=== PATIENT | male | born 1960 | race Caucasian/White ===

== ENCOUNTER → 2016-03-17 | Outpatient (CLI) | payer MEDICARE, MEDICAID ==
--- NOTE | 2016-03-17 14:46 | CR ---
EXAMINATION: Right foot HISTORY: Pain COMPARISON: None TECHNIQUE: 2 views FINDINGS/IMPRESSION: There is no acute osseous abnormality, dislocation, or fracture identified. Bon e mineralization and joint spaces appear normal. No soft tissue swelling.
== END | disposition home or self-care (01) ==
LOC: MW.CHFP 09:42
PROVIDERS: ATTEND Emergency Medicine
DX: M79.671 Pain in right foot (principal); R42 Dizziness and giddiness
CPT/HCPCS: 73620; G0463

== ENCOUNTER 2016-04-30 11:13 | Emergency (ER) | payer MEDICARE, MEDICAID ==
[2016-04-30] MEDS ORDERED: Albuterol/Ipratropium 3.0-0.5 MG/3 ML Neb Soln NEB ONE (11:31)
[2016-04-30] MEDS ORDERED: Sodium Chloride 0.9% 1,000 ML IV ONE (11:37)
[2016-04-30] MEDS ORDERED: methylPREDNISolone Sodium Succinate 125 MG/2 ML SDV IVPUSH ONE (11:38)
--- NOTE | 2016-04-30 11:40 | EDM.PDOC ---
[id number]: COLD Time Seen by Provider: 04/30/16 11:25 Source of Information: Reports: Patient, Family History Limitations: Reports: No limitations - History of Present Illness INITIAL COMMENTS - FREE TEXT/NARRATIVE: HISTORY AND PHYSICAL: History of present illness: 36-year-old male with a history of COPD now complaining of some mild wheezing and cough for more than 5 days it no chest pain. No fevers chills sweats or shaking chills. His is able to function well is just has mild persistent cough and wheeze [other complaint] Review of systems: As per history of present illness and below otherwise all systems reviewed and negative. Past medical history: As per history of present illness and as reviewed below otherwise noncontributory. Surgical history: As per history of present illness and as reviewed below otherwise noncontributory. Social history: No reported history of drug or alcohol abuse. Family history: As per history of present illness and as reviewed below otherwise noncontributory. Physical exam: HEENT: Atraumatic, normocephalic, pupils reactive, negative for conjunctival pallor or scleral icterus, mucous membranes moist, throat clear, neck supple, nontender, trachea midline. Lungs: Clear to auscultation, mild wheezing bilateral, breath sounds equal bilaterally, chest nontender. Heart: S1S2, regular, negative for clicks, rubs, or JVD. Abdomen: Soft, nondistended, nontender. Negative for masses or hepatosplenomegaly. Negative for costovertebral tenderness. Pelvis: Stable nontender. Genitourinary: Deferred. Rectal: Deferred. Extremities: Atraumatic, negative for cords or calf pain. Neurovascular unremarkable. Neuro: Awake, alert, oriented. Cranial nerves II through XII unremarkable. Cerebellum unremarkable. Motor and sensory unremarkable throughout. Exam nonfocal. Diagnostics: [] Therapeutics: [] Impression: [] Plan: [Signs and symptoms consistent with mild COPD exacerbation in a well-appearing patient at baseline oxygenation status and in no acute distress after treatment. X-ray unremarkable. EKG benign with normal sinus tachycardia at 107 normal axis no STEMI. Discussed with patient will treat with Zithromax. He is aware to use Mucinex DM and a prescription for Tessalon Perles dispensed as well as a short course of prednisone which she is aware it is important to finish. no further workup or treatment indicated] patient agrees with outpatient followup strict return precautions Definitive disposition and diagnosis as appropriate pending reevaluation and review of above. - Related Data Allergies/ADRs: Allergies Allergy/AdvReac Type Severity Reaction Status Date / Time No Known Allergies Allergy Verified 12/01/15 11:32 Home Meds: Home Meds Diltiazem HCl [Diltiazem 24Hr Cd] 300 mg PO DAILY 05/29/14 [History] Metoprolol Succinate [Toprol XL] 50 mg PO DAILY 05/29/14 [History] Montelukast Sodium [Singulair] 10 mg PO DAILY 05/29/14 [History] Omeprazole 20 mg PO DAILY 05/29/14 [History] Oxybutynin 1 tab PO DAILY 05/29/14 [History] PARoxetine [Paxil] 20 mg PO DAILY 05/29/14 [History] Potassium Chloride 20 meq PO DAILY 05/29/14 [History] Divalproex Sodium [Divalproex Sodium ER] 500 mg PO BEDTIME 09/04/15 [History] Losartan Potassium 25 mg PO DAILY 09/04/15 [History] Fluticasone/Salmeterol [Advair 250-50] 1 puff INH DAILY PRN 09/06/15 [History] busPIRone HCl [Buspirone HCl] 15 mg PO BID 10/24/15 [History] guaiFENesin/Codeine Phosphate [Codeine-Guaifen 10-100 mg/5 ml] 5 ml PO Q4H PRN 11/15/15 [History] Digoxin [Digox] 1 tab PO DAILY 11/16/15 [History] Azithromycin [Zithromax] 250 mg PO DAILY #6 tablet 04/30/16 [Rx] Benzonatate 200 mg PO TID #30 capsule 04/30/16 [Rx] Dextromethorphan/guaiFENesin [Mucinex DM ER 600-30 MG] 1 tab PO BID PRN #20 tab.er 04/30/16 [Rx] Prednisone [IMW: predniSONE] 40 mg PO WITHBREAKFAST #4 tab 04/30/16 [Rx] Past Medical History Cardiovascular History: Reports: High cholesterol, Hypertension Respiratory History: Reports: Asthma Other Respiratory History: Chronic cough, 02 as needed (mother states he seldom uses 02 at present as cough and SOB is better). 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 Psychiatric History: Reports: Anxiety, Developmental delay Other Psychiatric History: high functioning Endocrine/Metabolic History: Reports: Diabetes, type II Hematologic History: Reports: None Immunologic History: Reports: None Oncologic (Cancer) History: Reports: None Dermatologic History: Reports: None - Infectious Disease History Infectious Disease History: Reports: Measles, Mumps - Past Surgical History HEENT Surgical History: Reports: Tonsillectomy GI Surgical History: Reports: Cholecystectomy Other Male Surgeries/Procedures: hx prostatitis Other Musculoskeletal Surgeries/Procedures:: Right Elbow surgery with metal and screws, c/o left shoulder pain and rt elbow pain Social & Family History - Family History Family Medical History: Noncontributory Cardiac: Reports: [place] Endocrine/Metabolic: Reports: Diabetes, type II - Tobacco Use Smoking Status *Q: Never Smoker Years of Tobacco use: 25 Packs/Tins Daily: 1 Second Hand Smoke Exposure: Yes - Caffeine Use Caffeine Use: Reports: None - Alcohol Use Days Per Week of Alcohol Use: 0 - Recreational Drug Use Recreational Drug Use: No Drug Use in Last 12 Months: No - Living Situation & Occupation Living situation: Reports: single, with family (mother and father) Occupation: disabled ED ROS GENERAL - Review of Systems Review Of Systems: See Below (Her history of present illness) ED EXAM, GENERAL - Physical Exam Exam: See Below (Per history of present illness) Course - Vital Signs Last Recorded V/S: Last Vital Signs Temp 36.6 C 04/30/16 14:36 Pulse 127 H 04/30/16 14:36 Resp 18 04/30/16 14:36 BP 125/80 04/30/16 14:36 Pulse Ox 94 L 04/30/16 14:36 - Orders/Labs/Meds Labs: Laboratory Tests 04/30/16 04/30/16 Range/Units 11:46 11:57 POC Glucose 166 H (60-110) mg/dL Troponin I < 0.10 (0.0-0.29) NG/ML Meds: Medications Discontinued Medications Generic Name Dose Route Start Last Admin Trade Name Freq PRN Reason Stop Dose Admin Albuterol/Ipratropium 3 ml 04/30/16 11:31 04/30/16 11:48 Duoneb 3.0-0.5 Mg/3 Ml NEB 04/30/16 11:32 3 ml ONETIME ONE Administration Sodium Chloride 1,000 mls @ 999 mls/hr 04/30/16 11:37 04/30/16 11:53 Normal Saline IV 04/30/16 12:37 999 mls/hr STAT ONE Administration Methylprednisolone Sodium Succinate 125 mg 04/30/16 11:38 04/30/16 11:59 Solu-Medrol IVPUSH 04/30/16 11:39 125 mg ONETIME ONE Administration Departure - Departure Time of Disposition: 14:35 Disposition: Home, Self-Care 01 Clinical Impression: Acute exacerbation of chronic obstructive airways disease Prescriptions: Azithromycin [Zithromax] 250 mg PO DAILY #6 tablet Benzonatate 200 mg PO TID #30 capsule Dextromethorphan/guaiFENesin [Mucinex DM ER 600-30 MG] 1 tab PO BID PRN #20 tab.er PRN Reason: Congestion Prednisone [IMW: predniSONE] 40 mg PO WITHBREAKFAST #4 tab Instructions: Chronic Obstructive Pulmonary Disease Exacerbation, [id number] Referrals: Pernell Rosas MD [Primary Care Provider] - Forms: ED Department Discharge
--- NOTE | 2016-04-30 12:25 | CR ---
EXAMINATION: Two-view chest (PA and Lateral views). HISTORY: Shortness of breath. FINDINGS: The trachea is midline. The cardiomediastinal silhouette is within normal limits. No pulmonary infil trates, effusions or pneumothorax. Osseous structures appear unremarkable. IMPRESSION: No acute cardiopulmonary process.
[2016-04-30 14:38] VITALS: BP 125/80
== END 2016-04-30 14:36 | disposition home or self-care (01) ==
LOC: MW.ED 11:13
DX: J44.1 Chronic obstructive pulmonary disease with (acute) exacerbation (principal); E78.00 Pure hypercholesterolemia, unspecified; I10 Essential (primary) hypertension; M19.90 Unspecified osteoarthritis, unspecified site; E11.9 Type 2 diabetes mellitus without complications; K21.9 Gastro-esophageal reflux disease without esophagitis; Z90.89 Acquired absence of other organs; Z98.890 Other specified postprocedural states
CPT/HCPCS: 36415; 71020; 82962; 84484; 93005; 94664; 96361; 96374; 99284; J2930; J7040

== ENCOUNTER → 2016-05-14 | Outpatient (CLI) | payer MEDICARE, MEDICAID | LOC: MW.CHFP 08:00 | PROVIDERS: ATTEND Emergency Medicine | DX: J45.40 Moderate persistent asthma, uncomplicated (principal) | CPT/HCPCS: G0463 ==

== ENCOUNTER → 2016-05-28 | Outpatient (CLI) | payer MEDICARE, MEDICAID ==
[~2016-05-28] MED LIST: Albuterol 0.083% 2.5 MG/3 ML Neb Soln NEB ONE
== END | disposition home or self-care (01) ==
LOC: MW.RT 13:24
PROVIDERS: ATTEND Emergency Medicine
DX: J45.40 Moderate persistent asthma, uncomplicated (principal)
CPT/HCPCS: 94060

== ENCOUNTER → 2016-05-29 | Outpatient (CLI) | payer MEDICARE, MEDICAID | LOC: MW.CHFP 08:00 | PROVIDERS: ATTEND Emergency Medicine | DX: J38.3 Other diseases of vocal cords (principal); R06.2 Wheezing | CPT/HCPCS: G0463 ==

== ENCOUNTER 2016-09-14 15:10 | Emergency (ER) | payer MEDICARE, MEDICAID ==
[2016-09-14 16:06] LABS: CHLORIDE,CL 98 mmol/L (98-110); SODIUM,NA 140 mmol/L (136-146)
[2016-09-14] MEDS ORDERED: Albuterol 0.083% 2.5 MG/3 ML Neb Soln NEB ONE (18:23)
[2016-09-14] MEDS ORDERED: methylPREDNISolone Sodium Succinate 125 MG/2 ML SDV IVPUSH ONE (18:50)
--- NOTE | 2016-09-14 18:55 | EDM.PDOC ---
ED HPI GENERAL MEDICAL PROBLEM - General Chief Complaint: Neuro Symptoms/Deficits Stated Complaint: HIGH BLOOD SUGAR Time Seen by Provider: 09/14/16 15:35 Source of Information: Reports: Patient History Limitations: Reports: No Limitations - History of Present Illness INITIAL COMMENTS - FREE TEXT/NARRATIVE: HISTORY AND PHYSICAL: History of present illness: [Patient comes to the ER complaining of increased wheezing. Has done 2 albuterol nebulizer treatments today, but continues to feel some wheezing. Questions if his blood sugars may be low. Is brought to the ER by his mother. Denies fever and chills. No chest pain or difficulty breathing. Appetite has been good. No abdominal pain, nausea or vomiting. No constipation. Has had some loose stools without blood. No cough or sputum production. No swelling or discomfort to his legs. No fatigue. Feels some dizziness when he is experiencing wheezing, but has otherwise not had any dizziness. ] Review of systems: As per history of present illness and below otherwise all systems reviewed and negative. Past medical history: As per history of present illness and as reviewed below otherwise noncontributory. Surgical history: As per history of present illness and as reviewed below otherwise noncontributory. Social history: No reported history of drug or alcohol abuse. Family history: As per history of present illness and as reviewed below otherwise noncontributory. Physical exam: General: Well developed, well nourished male in no acute distress. Is afebrile. HEENT: Atraumatic, normocephalic. mucous membranes moist. neck supple, nontender , no lympadenopathy. Lungs: Clear to auscultation, mild to moderate wheezing appreciated throughout lung jin. Chest is nontender to palpation. Heart: S1S2, regular rate and rhythm. Abdomen: Obese. Soft, nondistended, nontender. Negative for costovertebral tenderness. Pelvis: Stable nontender. Genitourinary: Deferred. Rectal: Deferred. Extremities: Atraumatic, negative for cords or calf pain. No cyanosis or edema to feet or lower legs. Ambulates that difficulty. Neurovascular unremarkable. Neuro: Awake, alert, oriented. Motor and sensory unremarkable throughout. Exam nonfocal. Psych: Appears to have a developmental delay on conversation. Diagnostics: [Chest x-ray, EKG, CBC, CMP, lactate, UA] Therapeutics: [Solu-Medrol 125 mg IV] Impression: [Asthma exacerbation Type 2 diabetes] Plan: [EKG shows normal sinus rhythm. No acute process seen on chest x-ray. No acute process seen on chest x-ray. Lab results are unremarkable. Blood sugar 131. lactate 1.3. White blood cell count 9.46. Prednisone 40 mg daily for 5 days. Follow-up with doctor later this week. Patient and mom are in agreement with plan. All questions are answered and concerns are addressed.] Definitive disposition and diagnosis as appropriate pending reevaluation and review of above. - Related Data Allergies Allergy/AdvReac Type Severity Reaction Status Date / Time No Known Allergies Allergy Verified 09/14/16 15:13 Home Meds: Home Meds Diltiazem HCl [Diltiazem 24Hr Cd] 300 mg PO DAILY 05/29/14 [History] Metoprolol Succinate [Toprol XL] 50 mg PO DAILY 05/29/14 [History] Montelukast Sodium [Singulair] 10 mg PO DAILY 05/29/14 [History] Omeprazole 20 mg PO DAILY 05/29/14 [History] Oxybutynin 1 tab PO DAILY 05/29/14 [History] PARoxetine [Paxil] 20 mg PO DAILY 05/29/14 [History] Potassium Chloride 20 meq PO DAILY 05/29/14 [History] Divalproex Sodium [Divalproex Sodium ER] 500 mg PO BEDTIME 09/04/15 [History] Losartan Potassium 25 mg PO DAILY 09/04/15 [History] Fluticasone/Salmeterol [Advair 250-50] 1 puff INH DAILY PRN 09/06/15 [History] busPIRone HCl [Buspirone HCl] 15 mg PO BID 10/24/15 [History] guaiFENesin/Codeine Phosphate [Codeine-Guaifen 10-100 mg/5 ml] 5 ml PO Q4H PRN 11/15/15 [History] Digoxin [Digox] 1 tab PO DAILY 11/16/15 [History] Azithromycin [Zithromax] 250 mg PO DAILY #6 tablet 04/30/16 [Rx] Benzonatate 200 mg PO TID #30 capsule 04/30/16 [Rx] Dextromethorphan/guaiFENesin [Mucinex DM ER 600-30 MG] 1 tab PO BID PRN #20 tab.er 04/30/16 [Rx] Prednisone [IMW: predniSONE] 40 mg PO WITHBREAKFAST #4 tab 04/30/16 [Rx] Prednisone [IJD: predniSONE] 40 mg PO WITHBREAKFAST #10 tab 09/14/16 [Rx] Past Medical History Cardiovascular History: Reports: High Cholesterol, Hypertension Respiratory History: Reports: Asthma Other Respiratory History: Chronic cough, 02 as needed (mother states he seldom uses 02 at present as cough and SOB is better). 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 Psychiatric History: Reports: Anxiety, Developmental Delay Other Psychiatric History: high functioning Endocrine/Metabolic History: Reports: Diabetes, Type II Hematologic History: Reports: None Immunologic History: Reports: None Oncologic (Cancer) History: Reports: None Dermatologic History: Reports: None - Infectious Disease History Infectious Disease History: Reports: Measles, Mumps - Past Surgical History HEENT Surgical History: Reports: Tonsillectomy Male Surgical History: Reports: Other (See Below) Other Musculoskeletal Surgeries/Procedures:: Right Elbow surgery with metal and screws, c/o left shoulder pain and rt elbow pain Social & Family History - Family History Family Medical History: Noncontributory Cardiac: Reports: [place] Endocrine/Metabolic: Reports: Diabetes, type II - Tobacco Use Smoking Status *Q: Never Smoker Years of Tobacco use: 25 Packs/Tins Daily: 1 Second Hand Smoke Exposure: Yes - Caffeine Use Caffeine Use: Reports: None - Alcohol Use Days Per Week of Alcohol Use: 0 - Recreational Drug Use Recreational Drug Use: No Drug Use in Last 12 Months: No - Living Situation & Occupation Living situation: Reports: Single, with Family Occupation: Disabled ED ROS GENERAL - Review of Systems Review Of Systems: ROS reveals no pertinent complaints other than HPI. ED EXAM, GENERAL - Physical Exam Exam: See Below Course - Vital Signs Last Recorded V/S: Last Vital Signs Temp 97.2 F 09/14/16 15:13 Pulse 90 09/14/16 19:28 Resp 18 09/14/16 19:28 BP 139/72 09/14/16 19:28 Pulse Ox 98 09/14/16 19:28 - Orders/Labs/Meds Orders: Active Orders 24 hr Category Date Time Status EKG Documentation Completion [RC] STAT Care 09/14/16 15:48 Active RT Aerosol Therapy [RC] ASDIRECTED Care 09/14/16 18:23 Active Chest 2V [CR] Stat Exams 09/14/16 15:48 Taken Labs: Laboratory Tests 09/14/16 09/14/16 09/14/16 Range/Units 15:23 15:23 15:58 WBC 9.46 (4.0-11.0) K/uL RBC 4.77 (4.50-5.90) M/uL Hgb 12.4 L (13.0-17.0) g/dL Hct 40.1 (38.0-50.0) % MCV 84.1 (80.0-98.0) fL MCH 26.0 L (27.0-32.0) pg MCHC 30.9 L (31.0-37.0) g/dL RDW Std Deviation 41.8 (28.0-62.0) fl RDW Coeff of Myles 14 (11.0-15.0) % Plt Count 309 (150-400) K/uL MPV 9.20 (7.40-12.00) fL Neut % (Auto) 56.9 (48.0-80.0) % Lymph % (Auto) 29.7 (16.0-40.0) % [place] % (Auto) 11.5 (0.0-15.0) % Eos % (Auto) 1.8 (0.0-7.0) % Baso % (Auto) 0.1 (0.0-1.5) % Neut # (Auto) 5.4 (1.4-5.7) K/uL Lymph # (Auto) 2.8 H (0.6-2.4) K/uL [place] # (Auto) 1.1 H (0.0-0.8) K/uL Eos # (Auto) 0.2 (0.0-0.7) K/uL Baso # (Auto) 0.0 (0.0-0.1) K/uL Nucleated RBC % 0.0 /100WBC Nucleated RBCs # 0 K/uL Lactate 1.3 (0.20-2.00) mmol/L Sodium 140 (136-146) mmol/L Potassium 4.1 (3.5-5.1) mmol/L Chloride 98 (98-110) mmol/L Carbon Dioxide 32 H (21-31) mmol/L BUN 12 (6.0-23.0) mg/dL Creatinine 0.8 (0.6-1.5) mg/dL Est Cr Clr Drug Dosing 108.51 mL/min Estimated GFR (MDRD) > 60.0 ml/min Glucose 131 H (60-110) mg/dL Calcium 9.1 (8.8-10.8) mg/dL Total Bilirubin 0.4 (0.1-1.5) mg/dL AST 25 (5-40) IU/L ALT 27 (8-54) IU/L Alkaline Phosphatase 110 (40-150) Total Protein 7.4 (6.0-8.0) g/dL Albumin 3.6 (3.5-5.0) g/dL Globulin 3.8 H (2.0-3.5) g/dL Albumin/Globulin Ratio 1.0 L (1.3-2.8) Urine Color Urine Appearance Urine pH (5.0-8.0) Ur Specific [place] (1.001-1.035) Urine Protein (NEGATIVE) mg/dL Urine Glucose (UA) (NEGATIVE) mg/dL Urine Ketones (NEGATIVE) mg/dL Urine Occult Blood (NEGATIVE) Urine Nitrite (NEGATIVE) Urine Bilirubin (NEGATIVE) Urine Urobilinogen (<2.0) EU/dL Ur Leukocyte Esterase (NEGATIVE) Urine RBC (0-2/HPF) Urine WBC (0-5/HPF) Ur Epithelial Cells (NONE-FEW) Urine Bacteria (NEGATIVE) 09/14/16 Range/Units 17:40 WBC (4.0-11.0) K/uL RBC (4.50-5.90) M/uL Hgb (13.0-17.0) g/dL Hct (38.0-50.0) % MCV (80.0-98.0) fL MCH (27.0-32.0) pg MCHC (31.0-37.0) g/dL RDW Std Deviation (28.0-62.0) fl RDW Coeff of Myles (11.0-15.0) % Plt Count (150-400) K/uL MPV (7.40-12.00) fL Neut % (Auto) (48.0-80.0) % Lymph % (Auto) (16.0-40.0) % [place] % (Auto) (0.0-15.0) % Eos % (Auto) (0.0-7.0) % Baso % (Auto) (0.0-1.5) % Neut # (Auto) (1.4-5.7) K/uL Lymph # (Auto) (0.6-2.4) K/uL [place] # (Auto) (0.0-0.8) K/uL Eos # (Auto) (0.0-0.7) K/uL Baso # (Auto) (0.0-0.1) K/uL Nucleated RBC % /100WBC Nucleated RBCs # K/uL Lactate (0.20-2.00) mmol/L Sodium (136-146) mmol/L Potassium (3.5-5.1) mmol/L Chloride (98-110) mmol/L Carbon Dioxide (21-31) mmol/L BUN (6.0-23.0) mg/dL Creatinine (0.6-1.5) mg/dL Est Cr Clr Drug Dosing mL/min Estimated GFR (MDRD) ml/min Glucose (60-110) mg/dL Calcium (8.8-10.8) mg/dL Total Bilirubin (0.1-1.5) mg/dL AST (5-40) IU/L ALT (8-54) IU/L Alkaline Phosphatase (40-150) Total Protein (6.0-8.0) g/dL Albumin (3.5-5.0) g/dL Globulin (2.0-3.5) g/dL Albumin/Globulin Ratio (1.3-2.8) Urine Color YELLOW Urine Appearance CLEAR Urine pH 6.0 (5.0-8.0) Ur Specific [place] 1.010 (1.001-1.035) Urine Protein NEGATIVE (NEGATIVE) mg/dL Urine Glucose (UA) NEGATIVE (NEGATIVE) mg/dL Urine Ketones NEGATIVE (NEGATIVE) mg/dL Urine Occult Blood NEGATIVE (NEGATIVE) Urine Nitrite NEGATIVE (NEGATIVE) Urine Bilirubin NEGATIVE (NEGATIVE) Urine Urobilinogen 0.2 (<2.0) EU/dL Ur Leukocyte Esterase NEGATIVE (NEGATIVE) Urine RBC NONE SEEN (0-2/HPF) Urine WBC 0-1 (0-5/HPF) Ur Epithelial Cells RARE (NONE-FEW) Urine Bacteria RARE (NEGATIVE) Meds: Medications Discontinued Medications Generic Name Dose Route Start Last Admin Trade Name Sheryl PRN Reason Stop Dose Admin Albuterol 2.5 mg 09/14/16 18:23 09/14/16 18:37 Proventil Neb Soln NEB 09/14/16 18:24 2.5 mg ONETIME ONE Administration Methylprednisolone Sodium Succinate 125 mg 09/14/16 18:50 09/14/16 18:59 Solu-Medrol IVPUSH 09/14/16 18:51 125 mg ONETIME ONE Administration Departure - Departure Time of Disposition: 18:55 Disposition: Home, Self-Care 01 Condition: Good Clinical Impression: Asthma exacerbation - Discharge Information Prescriptions: Prednisone [IJD: predniSONE] 40 mg PO WITHBREAKFAST #10 tab Instructions: Asthma, Adult, [id number] Referrals: Pernell Rosas MD [Primary Care Provider] - Forms: ED Department Discharge Additional Instructions: The following information is given to patients seen in the emergency department who are being discharged to home. This information is to outline your options for follow-up care. We provide all patients seen in our emergency department with a follow-up referral. The need for follow-up, as well as the timing and circumstances, are variable depending upon the specifics of your emergency department visit. If you don't have a primary care physician on staff, we will provide you with a referral. We always advise you to contact your personal physician following an emergency department visit to inform them of the circumstance of the visit and for follow-up with them and/or the need for any referrals to a consulting specialist. The emergency department will also refer you to a specialist when appropriate. This referral assures that you have the opportunity for follow-up care with a specialist. All of these measure are taken in an effort to provide you with optimal care, which includes your follow-up. Under all circumstances we always encourage you to contact your private physician who remains a resource for coordinating your care. When calling for follow-up care, please make the office aware that this follow-up is from your recent emergency room visit. If for any reason you are refused follow-up, please contact the [facility] emergency department at and asked to speak to the emergency department charge nurse. [facility] [address] [place] [id number] All up with your primary care provider at the clinic listed above in 48-72 hours. Take medications as prescribed. Be aware that Prednisone will increase your blood sugars. Return to ER as needed as discussed. - My Orders Last 24 Hours: My Active Orders 09/14/16 15:48 EKG Documentation Completion [RC] STAT Chest 2V [CR] Stat 09/14/16 18:23 RT Aerosol Therapy [RC] ASDIRECTED - Assessment/Plan Last 24 Hours: My Active Orders 09/14/16 15:48 EKG Documentation Completion [RC] STAT Chest 2V [CR] Stat 09/14/16 18:23 RT Aerosol Therapy [RC] ASDIRECTED
[2016-09-14 21:37] VITALS: BP 139/72
--- NOTE | 2016-09-15 09:28 | CR ---
EXAM DATE: 09/14/16 PATIENT'S AGE: 56 Patient: ABIGAIL TOLENTINO Facility: [place], [place] Site . Site : 1960 Study: XRay Chest [id number] 5:21:46 PM Ordering Physician: Doctor Orourke Final Report: INDICATION: pain/sob TECHNIQUE: Chest 2 views COMPARISON: None FINDINGS: Cardiovascular and mediastinum: Heart size and vasculature are normal in caliber and appearance. Mediastinum is within normal limits. Lungs and pleural spaces: No focal consolidation. No sign of pleural effusion. No pneumothorax. Bones and soft tissues: No significant findings. IMPRESSION: No acute cardiopulmonary disease. Dictated by Gomez Carbone MD @ 09/14/2016 6:02:21 PM Dictated by: Gomez Carbone MD @ 09/14/2016 18:02:28 (Electronic Signature) Report Signed by Proxy. MTDDawna
== END 2016-09-14 19:28 | disposition home or self-care (01) ==
LOC: MW.ED 15:10
DX: J45.901 Unspecified asthma with (acute) exacerbation (principal); E11.9 Type 2 diabetes mellitus without complications; E78.00 Pure hypercholesterolemia, unspecified; I10 Essential (primary) hypertension; K21.9 Gastro-esophageal reflux disease without esophagitis; Z79.899 Other long term (current) drug therapy; Z98.890 Other specified postprocedural states
CPT/HCPCS: 36415; 71020; 80053; 81001; 83605; 85025; 93005; 94640; 96374; 99284; J2930

== ENCOUNTER 2016-10-26 04:59 | Inpatient (IN) | payer MEDICARE, MEDICAID ==
--- NOTE | 2016-10-26 05:10 | EDM.PDOC ---
ED HPI GENERAL MEDICAL PROBLEM - General Chief Complaint: Respiratory Problem Stated Complaint: FALL Time Seen by Provider: 10/26/16 05:08 - History of Present Illness INITIAL COMMENTS - FREE TEXT/NARRATIVE: HISTORY AND PHYSICAL: History of present illness: Patient 56-year-old male history of COPD and diabetes who presents with a concern of dizziness and fall he states he had a fall with dizziness prior to arrival which was unable to get up. Did injure his knee in this fall he denies chest pain palpitations nausea vomiting or other complaints. He denies any head or neck pain or trauma no reported fever chills or other complaints Review of systems: As per history of present illness and below otherwise all systems reviewed and negative. Past medical history: As per history of present illness and as reviewed below otherwise noncontributory. Surgical history: As per history of present illness and as reviewed below otherwise noncontributory. Social history: No reported history of drug or alcohol abuse. Family history: As per history of present illness and as reviewed below otherwise noncontributory. Physical exam: HEENT: Atraumatic, normocephalic, pupils reactive, negative for conjunctival pallor or scleral icterus, mucous membranes dry, throat clear, neck supple, nontender, trachea midline. Lungs: Slightly coarse, breath sounds equal bilaterally, chest nontender. Heart: S1S2, regular, negative for clicks, rubs, or JVD. Abdomen: Soft, nondistended, nontender. Negative for masses or hepatosplenomegaly. Negative for costovertebral tenderness. Pelvis: Stable nontender. Genitourinary: Deferred. Rectal: Deferred. Extremities: Abrasion noted left knee no point tenderness crepitation joint grossly stable no effusion, negative for cords or calf pain. Neurovascular unremarkable. Neuro: Awake, alert, oriented. Cranial nerves II through XII unremarkable. Cerebellum unremarkable. Motor and sensory unremarkable throughout. Exam nonfocal. Diagnostics: CBC CMP PT/INR troponin chest x-ray EKG CT brain x-ray left knee Therapeutics: Normal saline 500 cc bolus surveillance monitor oxygen Impression: #1 dizziness #2 observation status post fall #3 history diabetes #4 history of COPD #5 left knee injury Definitive disposition and diagnosis as appropriate pending reevaluation and review of above. - Related Data Allergies Allergy/AdvReac Type Severity Reaction Status Date / Time meat Allergy Shortness Uncoded 10/26/16 05:09 of Breath Home Meds: Home Meds Diltiazem HCl [Diltiazem 24Hr Cd] 300 mg PO DAILY 05/29/14 [History] Metoprolol Succinate [Toprol XL] 50 mg PO DAILY 05/29/14 [History] Montelukast Sodium [Singulair] 10 mg PO DAILY 05/29/14 [History] Omeprazole 20 mg PO DAILY 05/29/14 [History] Oxybutynin 1 tab PO DAILY 05/29/14 [History] PARoxetine [Paxil] 20 mg PO DAILY 05/29/14 [History] Potassium Chloride 20 meq PO DAILY 05/29/14 [History] Divalproex Sodium [Divalproex Sodium ER] 500 mg PO BEDTIME 09/04/15 [History] Losartan Potassium 25 mg PO DAILY 09/04/15 [History] Fluticasone/Salmeterol [Advair 250-50] 1 puff INH DAILY PRN 09/06/15 [History] busPIRone HCl [Buspirone HCl] 15 mg PO BID 10/24/15 [History] guaiFENesin/Codeine Phosphate [Codeine-Guaifen 10-100 mg/5 ml] 5 ml PO Q4H PRN 11/15/15 [History] Digoxin [Digox] 1 tab PO DAILY 11/16/15 [History] Azithromycin [Zithromax] 250 mg PO DAILY #6 tablet 04/30/16 [Rx] Benzonatate 200 mg PO TID #30 capsule 04/30/16 [Rx] Dextromethorphan/guaiFENesin [Mucinex DM ER 600-30 MG] 1 tab PO BID PRN #20 tab.er 04/30/16 [Rx] Prednisone [IMW: predniSONE] 40 mg PO WITHBREAKFAST #4 tab 04/30/16 [Rx] Prednisone [IJD: predniSONE] 40 mg PO WITHBREAKFAST #10 tab 09/14/16 [Rx] Benztropine [Cogentin] 1 mg PO DAILY 10/26/16 [History] Furosemide [Furosemide] 20 mg PO DAILY 10/26/16 [History] QUEtiapine [SEROquel] 300 mg PO DAILY 10/26/16 [History] atorvaSTATin [Lipitor] 10 mg PO DAILY 10/26/16 [History] hydrOXYzine HCl [Atarax] 25 mg PO ASDIRECTED 10/26/16 [History] metFORMIN HCl [Metformin HCl] 1 tab PO DAILY 10/26/16 [History] traZODone 50 mg PO DAILY 10/26/16 [History] Past Medical History Cardiovascular History: Reports: High Cholesterol, Hypertension Respiratory History: Reports: Asthma Other Respiratory History: Chronic cough, 02 as needed (mother states he seldom uses 02 at present as cough and SOB is better). 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 Psychiatric History: Reports: Anxiety, Developmental Delay Other Psychiatric History: high functioning Endocrine/Metabolic History: Reports: Diabetes, Type II Hematologic History: Reports: None Immunologic History: Reports: None Oncologic (Cancer) History: Reports: None Dermatologic History: Reports: None - Infectious Disease History Infectious Disease History: Reports: Measles, Mumps - Past Surgical History HEENT Surgical History: Reports: Tonsillectomy Male Surgical History: Reports: Other (See Below) Other Musculoskeletal Surgeries/Procedures:: Right Elbow surgery with metal and screws, c/o left shoulder pain and rt elbow pain Social & Family History - Family History Family Medical History: Noncontributory Cardiac: Reports: [place] Endocrine/Metabolic: Reports: Diabetes, type II - Tobacco Use Smoking Status *Q: Never Smoker Years of Tobacco use: 25 Packs/Tins Daily: 1 Second Hand Smoke Exposure: Yes - Caffeine Use Caffeine Use: Reports: None - Alcohol Use Days Per Week of Alcohol Use: 0 - Recreational Drug Use Recreational Drug Use: No Drug Use in Last 12 Months: No - Living Situation & Occupation Living situation: Reports: Single, with Family Occupation: Disabled ED ROS GENERAL - Review of Systems Review Of Systems: ROS reveals no pertinent complaints other than HPI. ED EXAM, GENERAL - Physical Exam Exam: See Below (See dictation) Course - Vital Signs Last Recorded V/S: Last Vital Signs Temp 36.1 C 10/26/16 05:00 Pulse 87 10/26/16 05:00 Resp 20 10/26/16 05:00 BP 141/77 H 10/26/16 05:00 Pulse Ox 88 L 10/26/16 05:00 - Orders/Labs/Meds Orders: Active Orders 24 hr Category Date Time Status EKG Documentation Completion [RC] STAT Care 10/26/16 05:06 Active Chest 1V Frontal [CR] Stat Exams 10/26/16 05:08 Taken Head wo Cont [CT] Stat Exams 10/26/16 05:07 Taken Knee 3V Lt [CR] Stat Exams 10/26/16 05:08 Taken Sodium Chloride 0.9% [Normal Saline] 500 ml Med 10/26/16 05:15 Active IV .BOLUS Medication Orders Sodium Chloride (Normal Saline) 500 mls @ 999 mls/hr IV .BOLUS LACIE Last Admin: 10/26/16 05:11 Dose: 999 mls/hr Labs: Laboratory Tests 10/26/16 10/26/16 10/26/16 Range/Units 05:00 05:00 05:00 WBC 8.11 (4.0-11.0) K/uL RBC 5.13 (4.50-5.90) M/uL Hgb 13.8 (13.0-17.0) g/dL Hct 44.0 (38.0-50.0) % MCV 85.8 (80.0-98.0) fL MCH 26.9 L (27.0-32.0) pg MCHC 31.4 (31.0-37.0) g/dL RDW Std Deviation 43.0 (28.0-62.0) fl RDW Coeff of Myles 14 (11.0-15.0) % Plt Count 234 (150-400) K/uL MPV 9.10 (7.40-12.00) fL Add Manual Diff YES Neutrophils % (Manual) 45 L (48.0-80.0) % Band Neutrophils % 1 % Lymphocytes % (Manual) 41 H (16.0-40.0) % Monocytes % (Manual) 10 (0.0-15.0) % Eosinophils % (Manual) 2 (0.0-7.0) % Basophils % (Manual) 1 (0.0-1.5) % Nucleated RBC % 0.0 /100WBC Absolute Seg Neuts 3.6 Band Neutrophils # 0.1 Lymphocytes # (Manual) 3.3 Monocytes # (Manual) 0.8 Eosinophils # (Manual) 0.2 Basophils # (Manual) 0 Nucleated RBCs # 0 K/uL INR 1.08 (0.86-1.11) Sodium 143 (136-146) mmol/L Potassium 4.3 (3.5-5.1) mmol/L Chloride 97 L (98-110) mmol/L Carbon Dioxide 35 H (21-31) mmol/L BUN 15 (6.0-23.0) mg/dL Creatinine 1.0 (0.6-1.5) mg/dL Est Cr Clr Drug Dosing 84.15 mL/min Estimated GFR (MDRD) > 60.0 ml/min Glucose 135 H (60-110) mg/dL Calcium 9.6 (8.8-10.8) mg/dL Total Bilirubin 0.5 (0.1-1.5) mg/dL AST 19 (5-40) IU/L ALT 12 (8-54) IU/L Alkaline Phosphatase 91 (40-150) Troponin I (0.0-0.29) NG/ML Total Protein 7.4 (6.0-8.0) g/dL Albumin 3.7 (3.5-5.0) g/dL Globulin 3.7 H (2.0-3.5) g/dL Albumin/Globulin Ratio 1.0 L (1.3-2.8) 10/26/16 Range/Units 05:00 WBC (4.0-11.0) K/uL RBC (4.50-5.90) M/uL Hgb (13.0-17.0) g/dL Hct (38.0-50.0) % MCV (80.0-98.0) fL MCH (27.0-32.0) pg MCHC (31.0-37.0) g/dL RDW Std Deviation (28.0-62.0) fl RDW Coeff of Myles (11.0-15.0) % Plt Count (150-400) K/uL MPV (7.40-12.00) fL Add Manual Diff Neutrophils % (Manual) (48.0-80.0) % Band Neutrophils % % Lymphocytes % (Manual) (16.0-40.0) % Monocytes % (Manual) (0.0-15.0) % Eosinophils % (Manual) (0.0-7.0) % Basophils % (Manual) (0.0-1.5) % Nucleated RBC % /100WBC Absolute Seg Neuts Band Neutrophils # Lymphocytes # (Manual) Monocytes # (Manual) Eosinophils # (Manual) Basophils # (Manual) Nucleated RBCs # K/uL INR (0.86-1.11) Sodium (136-146) mmol/L Potassium (3.5-5.1) mmol/L Chloride (98-110) mmol/L Carbon Dioxide (21-31) mmol/L BUN (6.0-23.0) mg/dL Creatinine (0.6-1.5) mg/dL Est Cr Clr Drug Dosing mL/min Estimated GFR (MDRD) ml/min Glucose (60-110) mg/dL Calcium (8.8-10.8) mg/dL Total Bilirubin (0.1-1.5) mg/dL AST (5-40) IU/L ALT (8-54) IU/L Alkaline Phosphatase (40-150) Troponin I < 0.10 (0.0-0.29) NG/ML Total Protein (6.0-8.0) g/dL Albumin (3.5-5.0) g/dL Globulin (2.0-3.5) g/dL Albumin/Globulin Ratio (1.3-2.8) Meds: Medications Generic Name Dose Route Start Last Admin Trade Name Freq PRN Reason Stop Dose Admin Sodium Chloride 500 mls @ 999 mls/hr 10/26/16 05:15 10/26/16 05:11 Normal Saline IV 999 mls/hr .BOLUS LACIE Administration Departure - Departure Time of Disposition: 06:28 Disposition: Refer to Observation Condition: Good Clinical Impression: Dizziness, Fall, Diabetes - Discharge Information Referrals: PCP,None [Primary Care Provider] - Forms: ED Department Discharge - My Orders Last 24 Hours: My Active Orders 10/26/16 05:06 EKG Documentation Completion [RC] STAT 10/26/16 05:07 Head wo Cont [CT] Stat 10/26/16 05:08 Chest 1V Frontal [CR] Stat Knee 3V Lt [CR] Stat 10/26/16 05:15 Sodium Chloride 0.9% [Normal Saline] 500 ml IV .BOLUS - Assessment/Plan Last 24 Hours: My Active Orders 10/26/16 05:06 EKG Documentation Completion [RC] STAT 10/26/16 05:07 Head wo Cont [CT] Stat 10/26/16 05:08 Chest 1V Frontal [CR] Stat Knee 3V Lt [CR] Stat 10/26/16 05:15 Sodium Chloride 0.9% [Normal Saline] 500 ml IV .BOLUS
[2016-10-26] MEDS ORDERED: Sodium Chloride 0.9% 500 ML IV SCH (05:15)
[2016-10-26 05:31] LABS: CHLORIDE,CL 97 mmol/L (98-110); SODIUM,NA 143 mmol/L (136-146)
[2016-10-26] MEDS ORDERED: Morphine 2 MG/ML Syringe IVPUSH PRN (08:46)
[2016-10-26] MEDS ORDERED: Ondansetron 4 MG Tab.DIS PO PRN (08:46)
[2016-10-26] MEDS ORDERED: Docusate Sodium 100 MG Cap PO PRN (08:46)
--- NOTE | 2016-10-26 08:52 | CR ---
EXAMINATION: Right foot HISTORY: Pain COMPARISON: 03/17/2016 TECHNIQUE: 2 views FINDINGS/IMPRESSION: There is no acute osseous abnormality, dislocation, or fracture. There is a smal l plantar and a moderate Achilles calcaneal spur. Bone mineralization appears normal. No focal soft t issue swelling.
[2016-10-26] MEDS ORDERED: DILTIAZEM 300 MG PO SCH (09:00)
[2016-10-26] MEDS ORDERED: PARoxetine 20 MG Tab PO SCH (09:00)
[2016-10-26] MEDS ORDERED: QUEtiapine 100 MG Tab PO SCH (09:00)
[2016-10-26] MEDS ORDERED: Benztropine 1 MG Tab PO SCH (09:00)
[2016-10-26] MEDS: Sodium Chloride 0.9% 1,000 ML IV SCH (10:01)
[2016-10-26] MEDS: Enoxaparin 40 MG/0.4 ML Syringe SUBCUT SCH (10:04)
[2016-10-26] MEDS: Acetaminophen 325 MG Tab PO PRN ×2 (10:08→15:48)
--- NOTE | 2016-10-26 10:17 | PCM.HP ---
H&P History of Present Illness - General Date of Service: 10/26/16 Admit Problem/Dx: Admission Diagnosis/Problem Admission Diagnosis/Problem Syncope and collapse Source of Information: Patient, Family History Limitations: Reports: No Limitations - History of Present Illness Initial Comments - Free Text/Narative: The patient is a 56-year-old gentleman who is somewhat developmentally delayed and he lives with his mother. Patient has a history of COPD and diabetes. The patient and the patient's mother says that he has had a significant history of dizziness in which she will pass out and he has been unable to get up. The patient has fallen at least 4 times in the past several days. This is resulted bilateral knee injuries with abrasions as well as pain in his right foot. The patient has been taking medications for his depression, developmental delay, insomnia and these have been recently adjusted. The patient's primary concern at this time is pain in his right foot. There was also concern with regards to seizure disorder as he is mother has noticed him shaking and tremulous when he falls. Patient also does not have any recollection of his fall. Patient has been in his usual state of health. He has had no specific aggravating or relieving factors. Onset of Symptoms: Reports: Gradual Duration of Symptoms: Reports: Day(s): Location: Reports: Generalized Severity: Moderate Improves with: Reports: None Worsens with: Reports: None Associated Symptoms: Reports: Confusion, Other (Trauma) left knee Pain Score (Numeric/FACES): 9 - Related Data Allergies/Adverse Reactions: Allergies Allergy/AdvReac Type Severity Reaction Status Date / Time meat Allergy Shortness Uncoded 10/26/16 05:09 of Breath Home Medications: Home Meds Diltiazem HCl [Diltiazem 24Hr Cd] 300 mg PO DAILY 05/29/14 [History] Metoprolol Succinate [Toprol XL] 50 mg PO DAILY 05/29/14 [History] Montelukast Sodium [Singulair] 10 mg PO DAILY 05/29/14 [History] Omeprazole 20 mg PO DAILY 05/29/14 [History] Oxybutynin 5 mg PO DAILY 05/29/14 [History] PARoxetine [Paxil] 40 mg PO DAILY 05/29/14 [History] Potassium Chloride 20 meq PO DAILY 05/29/14 [History] Divalproex Sodium [Divalproex Sodium ER] 1,000 mg PO BEDTIME 09/04/15 [History] Losartan Potassium 25 mg PO DAILY 09/04/15 [History] Digoxin [Digox] 250 mcg PO DAILY 11/16/15 [History] Albuterol [Proventil HFA] 1 - 2 inh IH Q4H PRN 10/26/16 [History] Albuterol/Ipratropium [DuoNeb 3.0-0.5 MG/3 ML] 3 ml IH QID PRN 10/26/16 [History ] Benztropine [Cogentin] 1 mg PO BID 10/26/16 [History] Cholestyramine (With Sugar) [Cholestyramine Powder] 9 gm PO BID 10/26/16 [ History] Furosemide [Furosemide] 20 mg PO Q2D@0800 10/26/16 [History] QUEtiapine [SEROquel] 150 mg PO BID@1800,2100 10/26/16 [History] atorvaSTATin [Lipitor] 10 mg PO DAILY 10/26/16 [History] hydrOXYzine Pamoate [Hydroxyzine Pamoate] 25 mg PO BEDTIME PRN 10/26/16 [History ] metFORMIN HCl [Metformin HCl] 500 tab PO DAILY 10/26/16 [History] traZODone 50 mg PO BEDTIME 10/26/16 [History] Past Medical History HEENT History: Reports: None Cardiovascular History: Reports: High Cholesterol, Hypertension Respiratory History: Reports: Asthma Other Respiratory History: Chronic cough, 02 as needed (mother states he seldom uses 02 at present as cough and SOB is better). 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 Psychiatric History: Reports: Anxiety, Developmental Delay Other Psychiatric History: high functioning Endocrine/Metabolic History: Reports: Diabetes, Type II Hematologic History: Reports: None Immunologic History: Reports: None Oncologic (Cancer) History: Reports: None Dermatologic History: Reports: None - Infectious Disease History Infectious Disease History: Reports: Measles, Mumps - Past Surgical History HEENT Surgical History: Reports: Adenoidectomy, Tonsillectomy Respiratory Surgical History: Reports: None Male Surgical History: Reports: Other (See Below) Other Musculoskeletal Surgeries/Procedures:: Right Elbow surgery with metal and screws, c/o left shoulder pain and rt elbow pain Social & Family History - Family History Family Medical History: Noncontributory Cardiac: Reports: [place] Endocrine/Metabolic: Reports: Diabetes, type II - Tobacco Use Smoking Status *Q: Never Smoker Years of Tobacco use: 25 Packs/Tins Daily: 1 Second Hand Smoke Exposure: Yes - Caffeine Use Caffeine Use: Reports: Soda - Alcohol Use Days Per Week of Alcohol Use: 0 - Recreational Drug Use Recreational Drug Use: No Drug Use in Last 12 Months: No - Living Situation & Occupation Living situation: Reports: Single, with Family Occupation: Disabled H&P Review of Systems - Review of Systems: Review Of Systems: See Below General: Reports: Weakness, Weight Loss HEENT: Reports: No Symptoms Pulmonary: Reports: No Symptoms Cardiovascular: Reports: No Symptoms Gastrointestinal: Reports: No Symptoms Genitourinary: Reports: No Symptoms Musculoskeletal: Reports: Back Pain, Foot Pain Skin: Reports: No Symptoms Psychiatric: Reports: No Symptoms Neurological: Reports: Dizziness, Tremors Hematologic/Lymphatic: Reports: No Symptoms Immunologic: Reports: No Symptoms Exam - Exam Exam: See Below - Vital Signs Vital Signs: Last Vital Signs Temp 36.4 C 10/26/16 06:31 Pulse 70 10/26/16 07:38 Resp 18 10/26/16 07:38 BP 157/87 H 10/26/16 07:38 Pulse Ox 93 L 10/26/16 07:38 Weight: 110.3 kg - Exam Quality Assessment: No: Supplemental Oxygen General: Alert, Oriented, Cooperative HEENT: Conjunctiva Clear, EACs Clear, Mucosa Moist & [place], Nares Patent Neck: Supple, Trachea Midline Lungs: Clear to Auscultation, Normal Respiratory Effort Cardiovascular: Regular Rate, Regular Rhythm GI/Abdominal Exam: Normal Bowel Sounds, Soft, Non-Tender, No Distention Back Exam: Decreased Range of Motion Extremities: No Pedal Edema, Normal Capillary Refill Skin: Warm, Dry, Rash (Superficial abrasions bilateral knees anterior). No: Intact Neuro Extensive - Mental Status: Alert, Oriented x3 Psychiatric: Alert, Normal Affect - Patient Data Result Diagrams: 10/26/16 05:00 10/26/16 05:00 *Q Meaningful Use (ADM) - VTE *Q VTE Criteria *Q: VTE Mechanical Contraindications *Q: At Risk for Falls - Stroke *Q Stroke Criteria *Q: - AMI *Q AMI Criteria *Q: - Problem List (1) Seizure SNOMED Code(s): 59587464 ICD Code: R56.9 - UNSPECIFIED CONVULSIONS Status: Acute Priority: High Current Visit: Yes Problem Details: Noted to have minor trauma (2) Abrasion of right knee SNOMED Code(s): 255647294 ICD Code: S80.211A - ABRASION, RIGHT KNEE, INITIAL ENCOUNTER Status: Acute Priority: High Current Visit: Yes Qualifiers: Encounter type: initial encounter Qualified Code(s): S80.211A - Abrasion, right knee, initial encounter (3) Diabetes mellitus type 2 in obese SNOMED Code(s): 67672073 ICD Code: E11.9 - TYPE 2 DIABETES MELLITUS WITHOUT COMPLICATIONS; E66.9 - OBESITY, UNSPECIFIED Status: Chronic Priority: High Current Visit: Yes (4) HTN (hypertension) SNOMED Code(s): 46474463 ICD Code: I10 - ESSENTIAL (PRIMARY) HYPERTENSION Status: Chronic Priority : High Current Visit: Yes Qualifiers: Hypertension type: essential hypertension Qualified Code(s): I10 - Essential (primary) hypertension Problem List Initiated/Reviewed/Updated: Yes Orders Last 24hrs: Active Orders 24 hr Category Date Time Status Patient Status [ADT] Routine ADT 10/26/16 08:46 Active Blood Glucose Check, Bedside [RC] WITHMEALSANDBED Care 10/26/16 08:46 Active Oxygen Therapy [RC] PRN Care 10/26/16 08:46 Active Up With Assistance [RC] ASDIRECTED Care 10/26/16 08:46 Active VTE/DVT Education [RC] PER UNIT ROUTINE Care 10/26/16 08:46 Active Vital Signs [RC] Q4H Care 10/26/16 08:46 Active [employer] Diet [DIET] Diet 10/26/16 Lunch Active CBC WITH AUTO DIFF [HEME] AM Lab 10/27/16 05:11 Ordered COMPREHENSIVE METABOLIC PN,CMP [CHEM] AM Lab 10/27/16 05:11 Ordered Acetaminophen [Tylenol] Med 10/26/16 08:46 Active 650 mg PO Q4H PRN Benztropine [Cogentin] Med 10/26/16 09:00 Active 1 mg PO DAILY Diltiazem [Cardizem CD] Med 10/26/16 09:00 Active 120 mg PO DAILY Diltiazem [Cardizem CD] Med 10/26/16 09:00 Active 180 mg PO DAILY Divalproex Sodium [Depakote ER] Med 10/26/16 21:00 Active 500 mg PO BEDTIME Docusate Sodium [Colace] Med 10/26/16 08:46 Active 100 mg PO BID PRN Enoxaparin [Lovenox] Med 10/26/16 09:00 Active 40 mg SUBCUT DAILY Losartan [Cozaar] Med 10/26/16 09:00 Active 25 mg PO DAILY Metoprolol Succinate [Toprol XL] Med 10/26/16 09:00 Active 50 mg PO DAILY Morphine Med 10/26/16 08:46 Active 2 mg IVPUSH Q2H PRN Omeprazole Med 10/26/16 09:00 Active 20 mg PO DAILY Ondansetron [Zofran ODT] Med 10/26/16 08:46 Active 4 mg PO Q6H PRN Oxybutynin Med 10/26/16 09:00 Active 5 mg PO DAILY PARoxetine [Paxil] Med 10/26/16 09:00 Active 20 mg PO DAILY QUEtiapine [SEROquel] Med 10/26/16 09:00 Active 300 mg PO DAILY Sodium Chloride 0.9% [Normal Saline] 1,000 ml Med 10/26/16 09:00 Active IV ASDIRECTED metFORMIN [Glucophage] Med 10/26/16 09:00 Active 500 mg PO DAILY oxyCODONE Med 10/26/16 08:46 Active 5 mg PO Q4H PRN traZODone Med 10/26/16 09:00 Active 50 mg PO DAILY VTE Mechanical Contraindications [AST] Per Unit Routine Oth 10/26/16 08:46 Ordered Resuscitation Status Routine Resus Stat 10/26/16 08:46 Ordered Medication Orders Acetaminophen (Tylenol) 650 mg PO Q4H PRN PRN Reason: Pain (Mild 1-3)/fever Last Admin: 10/26/16 10:08 Dose: 650 mg Benztropine Mesylate (Cogentin) 1 mg PO DAILY LACIE Diltiazem HCl (Cardizem Cd) 120 mg PO DAILY LACIE Diltiazem HCl (Cardizem Cd) 180 mg PO DAILY LACIE Divalproex Sodium (Depakote Er) 500 mg PO BEDTIME LACIE Docusate Sodium (Colace) 100 mg PO BID PRN PRN Reason: Constipation Enoxaparin Sodium (Lovenox) 40 mg SUBCUT DAILY [facility] Last Admin: 10/26/16 10:04 Dose: 40 mg Sodium Chloride (Normal Saline) 500 mls @ 999 mls/hr IV .BOLUS [facility] Last Admin: 10/26/16 05:11 Dose: 999 mls/hr Sodium Chloride (Normal Saline) 1,000 mls @ 50 mls/hr IV ASDIRECTED [facility] Last Admin: 10/26/16 10:01 Dose: 50 mls/hr Losartan Potassium (Cozaar) 25 mg PO DAILY [facility] Metformin HCl (Glucophage) 500 mg PO DAILY [facility] Metoprolol Succinate (Toprol Xl) 50 mg PO DAILY [facility] Morphine Sulfate (Morphine) 2 mg IVPUSH Q2H PRN PRN Reason: Pain (severe 7-10) Stop: 10/27/16 08:51 Omeprazole (Omeprazole) 20 mg PO DAILY [facility] Ondansetron HCl (Zofran Odt) 4 mg PO Q6H PRN PRN Reason: nausea, able to take PO Oxybutynin Chloride (Oxybutynin) 5 mg PO DAILY [facility] Oxycodone HCl (Oxycodone) 5 mg PO Q4H PRN PRN Reason: Pain (moderate 4-6) Paroxetine HCl (Paxil) 20 mg PO DAILY [facility] Quetiapine Fumarate (Seroquel) 300 mg PO DAILY [facility] Trazodone HCl (Trazodone) 50 mg PO DAILY [facility] Assessment/Plan Comment:: The patient is a 56-year-old gentleman who is been admitted to observation secondary to his syncopal episodes with frequent falling. I have ordered a prolactin level as he has fallen this morning and this is elevated today. This is fairly consistent with seizure. The patient's mother says that his medication has been adjusted and she does not seem to think is working. The patient has not followed up with neurology recently. I reviewed the patient's medication list and I started his home medications. He has also a type II diabetic and the patient has been kept on a diabetic diet along with Accu-Cheks before meals and at bedtime and also has been placed on sliding scale insulin. The patient will also be kept on telemetry and his vital signs were monitored frequently. Also I've ordered dressings to the superficial abrasions of his knees bilaterally and I've also reviewed the x-ray of his right foot which does not show any evidence of fracture. I suspect that the patient will need to follow-up with neurology if he still continues to fall. Neurology will be consulted. The patient's treatment plan will be adjusted otherwise. He may be appropriate for discharge in 1-2 days.
[2016-10-26] MEDS: Oxybutynin 5 MG Tab PO SCH (10:42)
[2016-10-26] MEDS: Diltiazem 120 MG Cap.CD PO SCH (10:42)
[2016-10-26] MEDS: metFORMIN 500 MG Tab PO SCH (10:43)
[2016-10-26] MEDS: Diltiazem 180 MG Cap.CD PO SCH (10:43)
[2016-10-26] MEDS: Omeprazole 20 MG Cap.CR PO SCH (10:45)
[2016-10-26] MEDS: PARoxetine 20 MG Tab PO SCH (10:46)
[2016-10-26] MEDS: traZODone 50 MG Tab PO SCH (10:46)
[2016-10-26] MEDS: Benztropine 1 MG Tab PO SCH ×2 (10:51→21:09)
[2016-10-26] MEDS: Losartan 50 MG Tab PO SCH (10:51)
[2016-10-26] MEDS: Bacitracin Oint 1 GM U/D Packet TOP SCH (12:00)
[2016-10-26] MEDS ORDERED: Magnesium Chloride 64 MG Tab.ER PO SCH (12:00)
[2016-10-26] MEDS ORDERED: Magnesium Oxide 400 MG Tab PO SCH (12:00)
[2016-10-26] MEDS: Metoprolol Succinate 50 MG Tab.ER PO SCH (12:17)
[2016-10-26] MEDS: Magnesium Oxide 400 MG Tab PO SCH (12:17)
[2016-10-26] MEDS: oxyCODONE 5 MG Tab PO PRN (12:29)
[2016-10-26] MEDS ORDERED: hydrOXYzine Pamoate 25 MG Cap PO PRN (14:51)
--- NOTE | 2016-10-26 16:45 | CT ---
EXAM DATE: 10/26/16 PATIENT'S AGE: 56 Patient: ABIGAIL TOLENTINO Facility: [place], [place] Site . Site : 1960 Study: CT Head [id number]/11/2017 5:53:19 AM Ordering Physician: Doctor Orourke Final Report: INDICATION: Frequent falls TECHNIQUE: Head CT without contrast. COMPARISON: None FINDINGS: CSF spaces: Within normal limits for age. Brain parenchyma: There are nonspecific low attenuation white matter changes consistent with chronic microvascular disease. No sign of mass, hemorrhage, or midline shift. Skull base and calvarium: The visualized paranasal sinuses and mastoid air cells demonstrate no acute or significant findings. The visualized orbits are grossly unremarkable. No skull fractures. There is intracranial atherosclerosis. IMPRESSION: 1. No acute findings. 2. Nonspecific white matter disease, typical of chronic microvascular disease. Please note that all CT scans at this facility use dose modulation, iterative reconstruction, and/or weight-based dosing when appropriate to reduce radiation dose to as low as reasonably achievable. Dictated by Halie Krishnamurthy MD @ Oct 26 2016 6:11AM (Electronic Signature) Report Signed by Proxy. [facility]ENTERDawna
--- NOTE | 2016-10-26 16:46 | CR ---
EXAM DATE: 10/26/16 PATIENT'S AGE: 56 Patient: ABIGAIL TOLENTINO Facility: [place], [place] Site . Site : 1960 Study: XRay Chest [id number]/11/2017 5:53:56 AM Ordering Physician: Rosalind Alfaro Final Report: Indication: Frequent falls Technique: Chest 1 view. Comparison: September 14, 2016 Findings: Cardiovascular and mediastinum: Heart size and vasculature are normal in caliber and appearance. Mediastinum is within normal limits. Lungs and pleural space: Lungs are clear. No sign of infiltrate or mass. No sign of pleural effusion. No pneumothorax. Bones and soft tissues: No significant findings. Impression: No sign of acute disease. Dictated by Halie Krishnamurthy MD @ Oct 26 2016 6:14AM (Electronic Signature) Report Signed by Proxy. [facility]ENTERDawna
--- NOTE | 2016-10-26 16:47 | CR ---
EXAM DATE: 10/26/16 PATIENT'S AGE: 56 Patient: ABIGAIL TOLENTINO Facility: [place], [place] Site . Site : 1960 Study: XRay Knee [id number]/11/2017 5:54:25 AM Ordering Physician: Doctor Orourke Final Report: Indication: Injury from fall Technique: Three views left knee Comparison: None Findings: Bones: Alignment is normal. No fractures or bone lesions. Joint spaces: Unremarkable. Soft tissues: Unremarkable. Impression: Negative. Dictated by Halie Krishnamurthy MD @ Oct 26 2016 6:14AM (Electronic Signature) Report Signed by Proxy. JUAN
[2016-10-26] MEDS: QUEtiapine 100 MG Tab PO SCH ×2 (17:59→21:09)
[2016-10-26] MEDS: Divalproex Sodium 500 MG Tab.ER PO SCH (21:09)
[2016-10-27] MEDS: Sodium Chloride 0.9% 1,000 ML IV SCH (05:35)
[2016-10-27 06:30] LABS: CHLORIDE,CL 101 mmol/L (98-110); SODIUM,NA 141 mmol/L (136-146)
[2016-10-27] MEDS ORDERED: Magnesium Chloride 64 MG Tab.ER PO SCH (09:00)
--- NOTE | 2016-10-27 09:20 | PCM.PN ---
- General Info Date of Service: 10/27/16 Admission Dx/Problem (Free Text): Admission Diagnosis/Problem Admission Diagnosis/Problem Syncope and collapse Subjective Update: The patient is somnolent today, difficult to arouse Functional Status: Reports: Pain Controlled - Review of Systems Systems Review Comment:: Unobtainable secondary to the patient's somnolence - Patient Data Vitals - Most Recent: Last Vital Signs Temp 36.2 C 10/27/16 08:00 Pulse 64 10/27/16 08:00 Resp 17 10/27/16 08:00 BP 96/52 L 10/27/16 08:00 Pulse Ox 93 L 10/27/16 08:00 Weight - Most Recent: 110.3 kg I&O - Last 24 Hours: Intake & Output 10/26/16 10/27/16 10/27/16 22:59 06:59 14:59 Intake Total 500 1078 Output Total 550 0 Balance -50 1078 Lab Results Last 24 Hours: Laboratory Results - last 24 hr 10/26/16 10/26/16 10/26/16 Range/Units 11:28 16:09 16:55 WBC (4.0-11.0) K/uL RBC (4.50-5.90) M/uL Hgb (13.0-17.0) g/dL Hct (38.0-50.0) % MCV (80.0-98.0) fL MCH (27.0-32.0) pg MCHC (31.0-37.0) g/dL RDW Std Deviation (28.0-62.0) fl RDW Coeff of Myles (11.0-15.0) % Plt Count (150-400) K/uL MPV (7.40-12.00) fL Add Manual Diff Neutrophils % (Manual) (48.0-80.0) % Lymphocytes % (Manual) (16.0-40.0) % Monocytes % (Manual) (0.0-15.0) % Eosinophils % (Manual) (0.0-7.0) % Nucleated RBC % /100WBC Absolute Seg Neuts Lymphocytes # (Manual) Monocytes # (Manual) Eosinophils # (Manual) Nucleated RBCs # K/uL Sodium (136-146) mmol/L Potassium (3.5-5.1) mmol/L Chloride (98-110) mmol/L Carbon Dioxide (21-31) mmol/L BUN (6.0-23.0) mg/dL Creatinine (0.6-1.5) mg/dL Est Cr Clr Drug Dosing mL/min Estimated GFR (MDRD) ml/min Glucose (60-110) mg/dL POC Glucose 104 117 H 114 H (60-110) mg/dL Calcium (8.8-10.8) mg/dL Total Bilirubin (0.1-1.5) mg/dL AST (5-40) IU/L ALT (8-54) IU/L Alkaline Phosphatase (40-150) Total Protein (6.0-8.0) g/dL Albumin (3.5-5.0) g/dL Globulin (2.0-3.5) g/dL Albumin/Globulin Ratio (1.3-2.8) 10/26/16 10/27/16 10/27/16 Range/Units 20:46 05:32 05:32 WBC 7.58 (4.0-11.0) K/uL RBC 4.60 (4.50-5.90) M/uL Hgb 12.3 L (13.0-17.0) g/dL Hct 40.6 (38.0-50.0) % MCV 88.3 (80.0-98.0) fL MCH 26.7 L (27.0-32.0) pg MCHC 30.3 L (31.0-37.0) g/dL RDW Std Deviation 45.7 (28.0-62.0) fl RDW Coeff of Myles 14 (11.0-15.0) % Plt Count 223 (150-400) K/uL MPV 9.10 (7.40-12.00) fL Add Manual Diff YES Neutrophils % (Manual) 48 (48.0-80.0) % Lymphocytes % (Manual) 39 (16.0-40.0) % Monocytes % (Manual) 11 (0.0-15.0) % Eosinophils % (Manual) 2 (0.0-7.0) % Nucleated RBC % 0.0 /100WBC Absolute Seg Neuts 3.6 Lymphocytes # (Manual) 3.0 Monocytes # (Manual) 0.8 Eosinophils # (Manual) 0.2 Nucleated RBCs # 0 K/uL Sodium 141 (136-146) mmol/L Potassium 4.3 (3.5-5.1) mmol/L Chloride 101 (98-110) mmol/L Carbon Dioxide 33 H (21-31) mmol/L BUN 16 (6.0-23.0) mg/dL Creatinine 0.8 (0.6-1.5) mg/dL Est Cr Clr Drug Dosing 105.45 mL/min Estimated GFR (MDRD) > 60.0 ml/min Glucose 120 H (60-110) mg/dL POC Glucose 121 H (60-110) mg/dL Calcium 8.9 (8.8-10.8) mg/dL Total Bilirubin 0.5 (0.1-1.5) mg/dL AST 13 (5-40) IU/L ALT 10 (8-54) IU/L Alkaline Phosphatase 79 (40-150) Total Protein 6.4 (6.0-8.0) g/dL Albumin 3.3 L (3.5-5.0) g/dL Globulin 3.1 (2.0-3.5) g/dL Albumin/Globulin Ratio 1.1 L (1.3-2.8) 10/27/16 Range/Units 06:07 WBC (4.0-11.0) K/uL RBC (4.50-5.90) M/uL Hgb (13.0-17.0) g/dL Hct (38.0-50.0) % MCV (80.0-98.0) fL MCH (27.0-32.0) pg MCHC (31.0-37.0) g/dL RDW Std Deviation (28.0-62.0) fl RDW Coeff of Myles (11.0-15.0) % Plt Count (150-400) K/uL MPV (7.40-12.00) fL Add Manual Diff Neutrophils % (Manual) (48.0-80.0) % Lymphocytes % (Manual) (16.0-40.0) % Monocytes % (Manual) (0.0-15.0) % Eosinophils % (Manual) (0.0-7.0) % Nucleated RBC % /100WBC Absolute Seg Neuts Lymphocytes # (Manual) Monocytes # (Manual) Eosinophils # (Manual) Nucleated RBCs # K/uL Sodium (136-146) mmol/L Potassium (3.5-5.1) mmol/L Chloride (98-110) mmol/L Carbon Dioxide (21-31) mmol/L BUN (6.0-23.0) mg/dL Creatinine (0.6-1.5) mg/dL Est Cr Clr Drug Dosing mL/min Estimated GFR (MDRD) ml/min Glucose (60-110) mg/dL POC Glucose 124 H (60-110) mg/dL Calcium (8.8-10.8) mg/dL Total Bilirubin (0.1-1.5) mg/dL AST (5-40) IU/L ALT (8-54) IU/L Alkaline Phosphatase (40-150) Total Protein (6.0-8.0) g/dL Albumin (3.5-5.0) g/dL Globulin (2.0-3.5) g/dL Albumin/Globulin Ratio (1.3-2.8) Med Orders - Current: Current Medications Acetaminophen (Tylenol) 650 mg PO Q4H PRN PRN Reason: Pain (Mild 1-3)/fever Last Admin: 10/26/16 15:48 Dose: 650 mg Bacitracin (Bacitracin Oint 1 Gm) 1 dose TOP DAILY [facility] Last Admin: 10/26/16 12:00 Dose: 1 dose Benztropine Mesylate (Cogentin) 1 mg PO BID [facility] Last Admin: 10/26/16 21:09 Dose: 1 mg Diltiazem HCl (Cardizem Cd) 120 mg PO DAILY [facility] Last Admin: 10/26/16 10:42 Dose: 120 mg Diltiazem HCl (Cardizem Cd) 180 mg PO DAILY [facility] Last Admin: 10/26/16 10:43 Dose: 180 mg Divalproex Sodium (Depakote Er) 1,000 mg PO BEDTIME [facility] Last Admin: 10/26/16 21:09 Dose: 1,000 mg Docusate Sodium (Colace) 100 mg PO BID PRN PRN Reason: Constipation Enoxaparin Sodium (Lovenox) 40 mg SUBCUT DAILY [facility] Last Admin: 10/26/16 10:04 Dose: 40 mg Hydroxyzine Pamoate (Vistaril) 25 mg PO BEDTIME PRN PRN Reason: Sleep Sodium Chloride (Normal Saline) 500 mls @ 999 mls/hr IV .BOLUS [facility] Last Admin: 10/26/16 05:11 Dose: 999 mls/hr Sodium Chloride (Normal Saline) 1,000 mls @ 50 mls/hr IV ASDIRECTED [facility] Last Admin: 10/27/16 05:35 Dose: 50 mls/hr Losartan Potassium (Cozaar) 25 mg PO DAILY [facility] Last Admin: 10/26/16 10:51 Dose: 25 mg Magnesium Oxide (Magnesium Oxide) 400 mg PO DAILY [facility] Last Admin: 10/26/16 12:17 Dose: 400 mg Metformin HCl (Glucophage) 500 mg PO DAILY [facility] Last Admin: 10/26/16 10:43 Dose: 500 mg Metoprolol Succinate (Toprol Xl) 50 mg PO DAILY [facility] Last Admin: 10/26/16 12:17 Dose: 50 mg Omeprazole (Omeprazole) 20 mg PO DAILY [facility] Last Admin: 10/26/16 10:45 Dose: 20 mg Ondansetron HCl (Zofran Odt) 4 mg PO Q6H PRN PRN Reason: nausea, able to take PO Oxybutynin Chloride (Oxybutynin) 5 mg PO DAILY [facility] Last Admin: 10/26/16 10:42 Dose: 5 mg Oxycodone HCl (Oxycodone) 5 mg PO Q4H PRN PRN Reason: Pain (moderate 4-6) Last Admin: 10/26/16 12:29 Dose: 5 mg Paroxetine HCl (Paxil) 40 mg PO DAILY [facility] Last Admin: 10/26/16 10:46 Dose: 40 mg Quetiapine Fumarate (Seroquel) 150 mg PO BID@1800,2100 [facility] Last Admin: 10/26/16 21:09 Dose: 150 mg Trazodone HCl (Trazodone) 50 mg PO DAILY [facility] Last Admin: 10/26/16 10:46 Dose: 50 mg Discontinued Medications Benztropine Mesylate (Cogentin) 1 mg PO DAILY [facility] Last Admin: 10/26/16 10:54 Dose: Not Given Magnesium Chloride (Mag-64) 400 mg PO DAILY [facility] Magnesium Chloride (Mag-64) 400 mg PO DAILY [facility] Magnesium Oxide (Magnesium Oxide) 400 mg PO DAILY [facility] Morphine Sulfate (Morphine) 2 mg IVPUSH Q2H PRN PRN Reason: Pain (severe 7-10) Stop: 10/27/16 08:51 Paroxetine HCl (Paxil) 20 mg PO DAILY [facility] Last Admin: 10/26/16 10:54 Dose: Not Given Quetiapine Fumarate (Seroquel) 300 mg PO DAILY [facility] Last Admin: 10/26/16 10:54 Dose: Not Given - Exam Quality Assessment: No: Supplemental Oxygen General: Lethargic HEENT: Pupils Equal Neck: Supple, Trachea Midline Lungs: Clear to Auscultation, Normal Respiratory Effort Cardiovascular: Regular Rate, Regular Rhythm GI/Abdominal Exam: Normal Bowel Sounds, Soft Back Exam: Decreased Range of Motion Extremities: No Pedal Edema Neurological: Other (Altered mental status) Psy/Mental Status: No: Alert - Problem List & Annotations (1) Altered mental status SNOMED Code(s): 124806799 Code(s): R41.82 - ALTERED MENTAL STATUS, UNSPECIFIED Status: Acute Priority: High Current Visit: Yes Qualifiers: Altered mental status type: transient alteration of awareness Qualified Code(s): R40.4 - Transient alteration of awareness (2) Seizure SNOMED Code(s): 01245307 Code(s): R56.9 - UNSPECIFIED CONVULSIONS Status: Acute Priority: High Current Visit: Yes Annotation/Comment:: Noted to have minor trauma (3) Abrasion of right knee SNOMED Code(s): 120776964 Code(s): S80.211A - ABRASION, RIGHT KNEE, INITIAL ENCOUNTER Status: Acute Priority: High Current Visit: Yes Qualifiers: Encounter type: initial encounter Qualified Code(s): S80.211A - Abrasion, right knee, initial encounter (4) Diabetes mellitus type 2 in obese SNOMED Code(s): 90452106 Code(s): E11.9 - TYPE 2 DIABETES MELLITUS WITHOUT COMPLICATIONS; E66.9 - OBESITY, UNSPECIFIED Status: Chronic Priority: High Current Visit: Yes (5) HTN (hypertension) SNOMED Code(s): 06673736 Code(s): I10 - ESSENTIAL (PRIMARY) HYPERTENSION Status: Chronic Priority : High Current Visit: Yes Qualifiers: Hypertension type: essential hypertension Qualified Code(s): I10 - Essential (primary) hypertension - Problem List Review Problem List Initiated/Reviewed/Updated: Yes - My Orders Last 24 Hours: My Active Orders 10/26/16 08:46 Patient Status [ADT] Routine Blood Glucose Check, Bedside [RC] WITHMEALSANDBED Oxygen Therapy [RC] PRN Up With Assistance [RC] ASDIRECTED VTE/DVT Education [RC] PER UNIT ROUTINE Vital Signs [RC] Q4H Acetaminophen [Tylenol] 650 mg PO Q4H PRN Docusate Sodium [Colace] 100 mg PO BID PRN Ondansetron [Zofran ODT] 4 mg PO Q6H PRN oxyCODONE 5 mg PO Q4H PRN VTE Mechanical Contraindications [AST] Per Unit Routine Resuscitation Status Routine 10/26/16 09:00 Diltiazem [Cardizem CD] 120 mg PO DAILY Diltiazem [Cardizem CD] 180 mg PO DAILY Enoxaparin [Lovenox] 40 mg SUBCUT DAILY Losartan [Cozaar] 25 mg PO DAILY Magnesium Oxide 400 mg PO DAILY Metoprolol Succinate [Toprol XL] 50 mg PO DAILY Omeprazole 20 mg PO DAILY Oxybutynin 5 mg PO DAILY Sodium Chloride 0.9% [Normal Saline] 1,000 ml IV ASDIRECTED metFORMIN [Glucophage] 500 mg PO DAILY traZODone 50 mg PO DAILY 10/26/16 10:30 Benztropine [Cogentin] 1 mg PO BID PARoxetine [Paxil] 40 mg PO DAILY 10/26/16 11:30 Bacitracin [Bacitracin Oint 1 GM] 1 dose TOP DAILY 10/26/16 14:51 hydrOXYzine Pamoate [Vistaril] 25 mg PO BEDTIME PRN 10/26/16 14:53 Consult to Physician [CONS] Urgent 10/26/16 14:54 Notify Provider Consults [RC] ASDIRECTED 10/26/16 18:00 QUEtiapine [SEROquel] 150 mg PO BID@1800,2100 10/26/16 21:00 Divalproex Sodium [Depakote ER] 1,000 mg PO BEDTIME 10/26/16 Lunch [employer] Diet [DIET] 10/27/16 00:21 Telemetry Monitoring [Cardiac Monitoring] [RC] Q8H - Plan Plan:: The patient is a 56-year-old gentleman who today is very somnolent and difficult to arouse. The patient's mother is concerned about the number of different anti-seizure and psychiatric medications that the patient is on. I discontinued the Seroquel as he has also been taking trazodone. The patient will be kept on his Depakote for now. The patient should see his neurologist as an outpatient secondary to his seizures. I believe that the patient's falls are related to his seizure disorder as opposed to diabetes or hypotension. I've ordered a CT scan of the patient's brain without contrast to help exclude acute intracranial abnormalities secondary to his falls. For now the patient will be kept on his diabetic diet with sliding scale insulin and he'll be on diet as tolerated. The patient should follow-up with neurology as an outpatient upon discharge. He may be appropriate for discharge and 1 day or sooner if necessary. Neurologist is not available for consultation and the patient does have a neurologist in [place].
[2016-10-27] MEDS: Omeprazole 20 MG Cap.CR PO SCH (10:00)
[2016-10-27] MEDS: Diltiazem 180 MG Cap.CD PO SCH (10:01)
[2016-10-27] MEDS: Diltiazem 120 MG Cap.CD PO SCH (10:02)
[2016-10-27] MEDS: metFORMIN 500 MG Tab PO SCH (10:03)
[2016-10-27] MEDS: Magnesium Oxide 400 MG Tab PO SCH (10:03)
[2016-10-27] MEDS: PARoxetine 20 MG Tab PO SCH (10:04)
[2016-10-27] MEDS: Bacitracin Oint 1 GM U/D Packet TOP SCH (10:04)
[2016-10-27] MEDS: Enoxaparin 40 MG/0.4 ML Syringe SUBCUT SCH (10:04)
[2016-10-27] MEDS: Losartan 50 MG Tab PO SCH (10:05)
[2016-10-27] MEDS: Benztropine 1 MG Tab PO SCH (10:06)
[2016-10-27] MEDS: Metoprolol Succinate 50 MG Tab.ER PO SCH (10:07)
[2016-10-27] MEDS: Oxybutynin 5 MG Tab PO SCH (10:26)
[2016-10-27] MEDS: traZODone 50 MG Tab PO SCH (10:41)
[2016-10-27] MEDS: oxyCODONE 5 MG Tab PO PRN (15:52)
--- NOTE | 2016-10-27 16:01 | CT ---
EXAMINATION: Non contrast CT head. Coronal and sagittal reformats. HISTORY: Altered mental status FINDINGS: No evidence of intra or extra axial hemorrhage, mass, midline shift, hydrocephalus or edema. No hypoattenuation changes in the major vascular territories to suggest acute infarct. No abnormal intracranial calcifications are detected. No evidence of substantial vascular calcificat ions. Paranasal sinuses and mastoid air cells are well aerated without substantial findings. The orbits an d globes are symmetric. Pituitary fossa appears unremarkable. Calvarium is intact. No evidence of skull fracture. IMPRESSION: No acute intracranial findings.
[2016-10-27] MEDS: Divalproex Sodium 500 MG Tab.ER PO SCH (20:26)
[2016-10-27] MEDS ORDERED: traZODone 50 MG Tab PO PRN (21:00)
[2016-10-28] MEDS: Sodium Chloride 0.9% 1,000 ML IV SCH ×2 (02:42→22:41)
[2016-10-28] MEDS: oxyCODONE 5 MG Tab PO PRN ×2 (03:19→17:42)
[2016-10-28 05:13] LABS: CHLORIDE,CL 103 mmol/L (98-110); SODIUM,NA 143 mmol/L (136-146)
[2016-10-28] MEDS: Magnesium Oxide 400 MG Tab PO SCH (08:14)
[2016-10-28] MEDS: PARoxetine 20 MG Tab PO SCH (08:14)
[2016-10-28] MEDS: Oxybutynin 5 MG Tab PO SCH (08:14)
[2016-10-28] MEDS: Omeprazole 20 MG Cap.CR PO SCH (08:14)
[2016-10-28] MEDS: Diltiazem 120 MG Cap.CD PO SCH (08:15)
[2016-10-28] MEDS: Bacitracin Oint 1 GM U/D Packet TOP SCH (08:15)
[2016-10-28] MEDS: Diltiazem 180 MG Cap.CD PO SCH (08:15)
[2016-10-28] MEDS: metFORMIN 500 MG Tab PO SCH (08:15)
[2016-10-28] MEDS: Enoxaparin 40 MG/0.4 ML Syringe SUBCUT SCH (08:16)
[2016-10-28] MEDS: Losartan 50 MG Tab PO SCH (08:16)
[2016-10-28] MEDS: Metoprolol Succinate 50 MG Tab.ER PO SCH (08:30)
--- NOTE | 2016-10-28 09:06 | PCM.PN ---
- General Info Date of Service: 10/28/16 Admission Dx/Problem (Free Text): Admission Diagnosis/Problem Admission Diagnosis/Problem Syncope and collapse Subjective Update: The patient is more awake and alert today. He is complaining of dizziness. Functional Status: Reports: Pain Controlled, Incentive Spirometry - Review of Systems General: Reports: Weakness Pulmonary: Reports: No Symptoms Cardiovascular: Reports: No Symptoms Gastrointestinal: Reports: No Symptoms Genitourinary: Reports: No Symptoms Musculoskeletal: Reports: No Symptoms Skin: Reports: No Symptoms Neurological: Reports: Dizziness Psychiatric: Reports: No Symptoms - Patient Data Vitals - Most Recent: Last Vital Signs Temp 35.9 C 10/28/16 08:00 Pulse 68 10/28/16 08:30 Resp 22 H 10/28/16 08:00 BP 119/65 10/28/16 08:30 Pulse Ox 91 L 10/28/16 08:00 Weight - Most Recent: 110.3 kg Med Orders - Current: Current Medications Acetaminophen (Tylenol) 650 mg PO Q4H PRN PRN Reason: Pain (Mild 1-3)/fever Last Admin: 10/26/16 15:48 Dose: 650 mg Bacitracin (Bacitracin Oint 1 Gm) 1 dose TOP DAILY [facility] Last Admin: 10/28/16 08:15 Dose: 1 dose Diltiazem HCl (Cardizem Cd) 120 mg PO DAILY [facility] Last Admin: 10/28/16 08:15 Dose: 120 mg Diltiazem HCl (Cardizem Cd) 180 mg PO DAILY [facility] Last Admin: 10/28/16 08:15 Dose: 180 mg Divalproex Sodium (Depakote Er) 1,000 mg PO BEDTIME [facility] Last Admin: 10/27/16 20:26 Dose: 1,000 mg Docusate Sodium (Colace) 100 mg PO BID PRN PRN Reason: Constipation Enoxaparin Sodium (Lovenox) 40 mg SUBCUT DAILY [facility] Last Admin: 10/28/16 08:16 Dose: 40 mg Hydroxyzine Pamoate (Vistaril) 25 mg PO BEDTIME PRN PRN Reason: Sleep Sodium Chloride (Normal Saline) 500 mls @ 999 mls/hr IV .BOLUS [facility] Last Admin: 10/26/16 05:11 Dose: 999 mls/hr Sodium Chloride (Normal Saline) 1,000 mls @ 50 mls/hr IV ASDIRECTED [facility] Last Admin: 10/28/16 02:42 Dose: 50 mls/hr Losartan Potassium (Cozaar) 25 mg PO DAILY [facility] Last Admin: 10/28/16 08:16 Dose: 25 mg Magnesium Oxide (Magnesium Oxide) 400 mg PO DAILY [facility] Last Admin: 10/28/16 08:14 Dose: 400 mg Metformin HCl (Glucophage) 500 mg PO DAILY [facility] Last Admin: 10/28/16 08:15 Dose: 500 mg Metoprolol Succinate (Toprol Xl) 50 mg PO DAILY [facility] Last Admin: 10/28/16 08:30 Dose: 50 mg Omeprazole (Omeprazole) 20 mg PO DAILY [facility] Last Admin: 10/28/16 08:14 Dose: 20 mg Ondansetron HCl (Zofran Odt) 4 mg PO Q6H PRN PRN Reason: nausea, able to take PO Oxybutynin Chloride (Oxybutynin) 5 mg PO DAILY [facility] Last Admin: 10/28/16 08:14 Dose: 5 mg Oxycodone HCl (Oxycodone) 5 mg PO Q4H PRN PRN Reason: Pain (moderate 4-6) Last Admin: 10/28/16 03:19 Dose: 5 mg Paroxetine HCl (Paxil) 40 mg PO DAILY [facility] Last Admin: 10/28/16 08:14 Dose: 40 mg Trazodone HCl (Trazodone) 50 mg PO BEDTIME PRN PRN Reason: sleep Discontinued Medications Benztropine Mesylate (Cogentin) 1 mg PO DAILY [facility] Last Admin: 10/26/16 10:54 Dose: Not Given Benztropine Mesylate (Cogentin) 1 mg PO BID [facility] Last Admin: 10/27/16 10:06 Dose: 1 mg Magnesium Chloride (Mag-64) 400 mg PO DAILY [facility] Magnesium Chloride (Mag-64) 400 mg PO DAILY [facility] Magnesium Oxide (Magnesium Oxide) 400 mg PO DAILY [facility] Metoprolol Succinate (Toprol Xl) 50 mg PO DAILY [facility] Last Admin: 10/27/16 10:07 Dose: 50 mg Morphine Sulfate (Morphine) 2 mg IVPUSH Q2H PRN PRN Reason: Pain (severe 7-10) Stop: 10/27/16 08:51 Paroxetine HCl (Paxil) 20 mg PO DAILY [facility] Last Admin: 10/26/16 10:54 Dose: Not Given Quetiapine Fumarate (Seroquel) 300 mg PO DAILY [facility] Last Admin: 10/26/16 10:54 Dose: Not Given Quetiapine Fumarate (Seroquel) 150 mg PO BID@1800,2100 [facility] Last Admin: 10/26/16 21:09 Dose: 150 mg Trazodone HCl (Trazodone) 50 mg PO DAILY [facility] Last Admin: 10/27/16 10:41 Dose: Not Given - Exam Quality Assessment: Supplemental Oxygen General: Alert, Oriented, Cooperative, No Acute Distress HEENT: Pupils Equal, Pupils Reactive, Other (No nystagmus) Neck: Supple, Trachea Midline Lungs: Clear to Auscultation, Normal Respiratory Effort Cardiovascular: Regular Rate, Regular Rhythm GI/Abdominal Exam: Normal Bowel Sounds, Soft, Non-Tender, No Distention Back Exam: Decreased Range of Motion Extremities: No Pedal Edema Skin: Warm, Dry Neurological: No New Focal Deficit Psy/Mental Status: Alert, Normal Affect - Problem List & Annotations (1) Altered mental status SNOMED Code(s): 083347725 Code(s): R41.82 - ALTERED MENTAL STATUS, UNSPECIFIED Status: Resolved Priority: High Current Visit: Yes Qualifiers: Altered mental status type: transient alteration of awareness Qualified Code(s): R40.4 - Transient alteration of awareness Annotation/Comment:: More awake and alert today, CT scan shows no acute abnormalities (2) Seizure SNOMED Code(s): 03771541 Code(s): R56.9 - UNSPECIFIED CONVULSIONS Status: Acute Priority: High Current Visit: Yes Annotation/Comment:: Noted to have minor trauma (3) Abrasion of right knee SNOMED Code(s): 894073367 Code(s): S80.211A - ABRASION, RIGHT KNEE, INITIAL ENCOUNTER Status: Acute Priority: High Current Visit: Yes Qualifiers: Encounter type: initial encounter Qualified Code(s): S80.211A - Abrasion, right knee, initial encounter (4) Diabetes mellitus type 2 in obese SNOMED Code(s): 04397689 Code(s): E11.9 - TYPE 2 DIABETES MELLITUS WITHOUT COMPLICATIONS; E66.9 - OBESITY, UNSPECIFIED Status: Chronic Priority: High Current Visit: Yes (5) HTN (hypertension) SNOMED Code(s): 48989785 Code(s): I10 - ESSENTIAL (PRIMARY) HYPERTENSION Status: Chronic Priority : High Current Visit: Yes Qualifiers: Hypertension type: essential hypertension Qualified Code(s): I10 - Essential (primary) hypertension - Problem List Review Problem List Initiated/Reviewed/Updated: Yes - Plan Plan:: The patient is a 56-year-old gentleman who is doing much better today. His main complaint today is dizziness. I'm concerned that the patient is having seizures that have resulted in his fall. The patient will need to have a an appointment as soon as possible with his neurologist in [place]. Upon discontinuation of the Seroquel the patient is doing much better today. He'll be kept on a diabetic diet. I've also encouraged patient for ambulation with assistance. The patient will be kept on low-dose fluids as necessary and the patient's medications will be adjusted accordingly. The patient may be appropriate for discharge later today. The patient's white blood cell count today is normal and his hemoglobin is 11.3 g/dL. This will be monitored all of patient is here. His manual differential is normal.
[2016-10-28] MEDS: Divalproex Sodium 500 MG Tab.ER PO SCH (21:30)
[2016-10-29] MEDS: oxyCODONE 5 MG Tab PO PRN (00:27)
[2016-10-29] MEDS ORDERED: Albuterol/Ipratropium 3.0-0.5 MG/3 ML Neb Soln NEB PRN (01:33)
[2016-10-29 05:02] LABS: CHLORIDE,CL 100 mmol/L (98-110); SODIUM,NA 142 mmol/L (136-146)
--- NOTE | 2016-10-29 08:25 | PCM.CONS ---
H&P History of Present Illness - General Date of Service: 10/29/16 Admit Problem/Dx: Admission Diagnosis/Problem Admission Diagnosis/Problem Syncope and collapse fall Source of Information: Patient, EMS - History of Present Illness Initial Comments - Free Text/Narative: History obtained from Augustus who is a poor historian and outpatient records. His mother is not currently available.This is a 56-year-old man with a history of cognitive impairment, diabetes mellitus, asthma admitted with fall, loss of consciousness He notes that he can't walk because of right foot pain. Regarding his seizures, he does not know much about them other than the falls and loses consciousness. Per Dr. Rayo noted in February, he had fallen 7 times from Thanksgiving to appt. Orthostatic were okay at that time. He sees a neurologist in [place]. He endorses lightheadedness with both sitting and standing. He denies any vertigo, chest pain, shortness of breath, headache, numbness, weakness, nausea, vomiting, diarrhea, fevers, chills. He notes swelling of his right foot and ankle. He endorsed tremor when I pointed it out to him. He does not know how long this has been present left knee Pain Score (Numeric/FACES): 3 - Related Data Allergies/Adverse Reactions: Allergies Allergy/AdvReac Type Severity Reaction Status Date / Time meat Allergy Shortness Uncoded 10/26/16 05:09 of Breath Home Medications: Home Meds Diltiazem HCl [Diltiazem 24Hr Cd] 300 mg PO DAILY 05/29/14 [History] Metoprolol Succinate [Toprol XL] 50 mg PO DAILY 05/29/14 [History] Montelukast Sodium [Singulair] 10 mg PO DAILY 05/29/14 [History] Omeprazole 20 mg PO DAILY 05/29/14 [History] Oxybutynin 5 mg PO DAILY 05/29/14 [History] PARoxetine [Paxil] 40 mg PO DAILY 05/29/14 [History] Potassium Chloride 20 meq PO DAILY 05/29/14 [History] Divalproex Sodium [Divalproex Sodium ER] 1,000 mg PO BEDTIME 09/04/15 [History] Losartan Potassium 25 mg PO DAILY 09/04/15 [History] Digoxin [Digox] 250 mcg PO DAILY 11/16/15 [History] Albuterol [Proventil HFA] 1 - 2 inh IH Q4H PRN 10/26/16 [History] Albuterol/Ipratropium [DuoNeb 3.0-0.5 MG/3 ML] 3 ml IH QID PRN 10/26/16 [History ] Benztropine [Cogentin] 1 mg PO BID 10/26/16 [History] Cholestyramine (With Sugar) [Cholestyramine Powder] 9 gm PO BID 10/26/16 [ History] Furosemide [Furosemide] 20 mg PO Q2D@0800 10/26/16 [History] QUEtiapine [SEROquel] 150 mg PO BID@1800,2100 10/26/16 [History] atorvaSTATin [Lipitor] 10 mg PO DAILY 10/26/16 [History] hydrOXYzine Pamoate [Hydroxyzine Pamoate] 25 mg PO BEDTIME PRN 10/26/16 [History ] metFORMIN HCl [Metformin HCl] 500 tab PO DAILY 10/26/16 [History] traZODone 50 mg PO BEDTIME 10/26/16 [History] Past Medical History HEENT History: Reports: None Cardiovascular History: Reports: High Cholesterol, Hypertension Respiratory History: Reports: Asthma Other Respiratory History: Chronic cough, 02 as needed (mother states he seldom uses 02 at present as cough and SOB is better). 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 Psychiatric History: Reports: Anxiety, Developmental Delay Other Psychiatric History: high functioning Endocrine/Metabolic History: Reports: Diabetes, Type II Hematologic History: Reports: None Immunologic History: Reports: None Oncologic (Cancer) History: Reports: None Dermatologic History: Reports: None - Infectious Disease History Infectious Disease History: Reports: Measles, Mumps - Past Surgical History HEENT Surgical History: Reports: Adenoidectomy, Tonsillectomy Respiratory Surgical History: Reports: None Male Surgical History: Reports: Other (See Below) Other Musculoskeletal Surgeries/Procedures:: Right Elbow surgery with metal and screws, c/o left shoulder pain and rt elbow pain Social & Family History - Family History Family Medical History: Noncontributory Cardiac: Reports: NE Endocrine/Metabolic: Reports: Diabetes, type II - Tobacco Use Smoking Status *Q: Never Smoker Years of Tobacco use: 25 Packs/Tins Daily: 1 Second Hand Smoke Exposure: Yes - Caffeine Use Caffeine Use: Reports: Soda - Alcohol Use Days Per Week of Alcohol Use: 0 - Recreational Drug Use Recreational Drug Use: No Drug Use in Last 12 Months: No - Living Situation & Occupation Living situation: Reports: Single, with Family Occupation: Disabled H&P Review of Systems - Review of Systems: Review Of Systems: ROS reveals no pertinent complaints other than HPI. Exam - Exam Exam: See Below - Vital Signs Vital Signs: Last Vital Signs Temp 37.2 C 10/29/16 03:33 Pulse 72 10/29/16 03:33 Resp 20 10/29/16 03:33 BP 128/69 10/29/16 03:33 Pulse Ox 94 L 10/29/16 06:00 Weight: 110.3 kg - Exam Physical Exam Comments:: Constitutional: No acute distress Psychiatric: Mood/Affect: normal/appropriate Neurological: Mental Status: General: Normal activity, good hygiene, appropriate appearance. Level of consciousness: Awake, alert. Orientation: Oriented to person, place, not to year or month Comprehension/Praxis: Difficulty with performing exam Fund of Knowledge/memory: Impaired recent and remote recall Language: Fluent and articulate without evidence of aphasia or dysarthria. Thought Content: Normal. Insight/Judgement: Impaired Cranial Nerves: Pupils equally round and reactive to light. Visual jin testing unreliable. Gaze conjugate, EOMI. Sensation intact and symmetric to light touch. Facial strength is full and symmetric. Palate elevates symmetrically. Normal shrug bilaterally. Tongue protrudes midline Motor: Normal tone in all groups. Strength tests somewhat limited by cooperation , but full strength in upper limbs. I was not able to get him to give full effort with ankle dorsiflexion or knee flexion, but strength 5 out of 5 proximally Sensation: Sensation is intact to temperature and vibratory sense Deep tendon reflexes: Normoactive throughout except ankle jerks are trace. Coordination: Finger to nose notable for tremor, right worse than left. There appears to be bilateral asterixis He did not seem to understand heel to [place] and rapid alternating movements. Gait: He was able to stand, but refused to walk due to foot pain HEENT: Eyes: non icteric, Mouth: moist mucus membranes Cardiovascular: RRR, no obvious murmur Respiratory: clear lungs GI: non tender Musculoskeletal: Tender edematous right ankle and foot Skin: no visible rash - Patient Data Lab Results Last 24 hrs: Laboratory Results - last 24 hr 10/28/16 10/28/16 10/28/16 Range/Units 11:40 15:30 16:08 WBC (4.0-11.0) K/uL RBC (4.50-5.90) M/uL Hgb (13.0-17.0) g/dL Hct (38.0-50.0) % MCV (80.0-98.0) fL MCH (27.0-32.0) pg MCHC (31.0-37.0) g/dL RDW Std Deviation (28.0-62.0) fl RDW Coeff of Myles (11.0-15.0) % Plt Count (150-400) K/uL MPV (7.40-12.00) fL Add Manual Diff Neutrophils % (Manual) (48.0-80.0) % Lymphocytes % (Manual) (16.0-40.0) % Monocytes % (Manual) (0.0-15.0) % Eosinophils % (Manual) (0.0-7.0) % Nucleated RBC % /100WBC Absolute Seg Neuts Lymphocytes # (Manual) Monocytes # (Manual) Eosinophils # (Manual) Nucleated RBCs # K/uL Sodium (136-146) mmol/L Potassium (3.5-5.1) mmol/L Chloride (98-110) mmol/L Carbon Dioxide (21-31) mmol/L BUN (6.0-23.0) mg/dL Creatinine (0.6-1.5) mg/dL Est Cr Clr Drug Dosing mL/min Estimated GFR (MDRD) ml/min Glucose (60-110) mg/dL POC Glucose 101 110 (60-110) mg/dL Calcium (8.8-10.8) mg/dL Total Bilirubin (0.1-1.5) mg/dL AST (5-40) IU/L ALT (8-54) IU/L Alkaline Phosphatase (40-150) Total Protein (6.0-8.0) g/dL Albumin (3.5-5.0) g/dL Globulin (2.0-3.5) g/dL Albumin/Globulin Ratio (1.3-2.8) Valproic Acid 51.7 (50-125) Ug/mL 10/28/16 10/28/16 10/29/16 Range/Units 21:41 22:33 04:12 WBC 7.40 (4.0-11.0) K/uL RBC 4.24 L (4.50-5.90) M/uL Hgb 11.3 L (13.0-17.0) g/dL Hct 37.6 L (38.0-50.0) % MCV 88.7 (80.0-98.0) fL MCH 26.7 L (27.0-32.0) pg MCHC 30.1 L (31.0-37.0) g/dL RDW Std Deviation 45.0 (28.0-62.0) fl RDW Coeff of Myles 14 (11.0-15.0) % Plt Count 207 (150-400) K/uL MPV 9.20 (7.40-12.00) fL Add Manual Diff YES Neutrophils % (Manual) 44 L (48.0-80.0) % Lymphocytes % (Manual) 35 (16.0-40.0) % Monocytes % (Manual) 17 H (0.0-15.0) % Eosinophils % (Manual) 4 (0.0-7.0) % Nucleated RBC % 0.0 /100WBC Absolute Seg Neuts 3.3 Lymphocytes # (Manual) 2.6 Monocytes # (Manual) 1.3 Eosinophils # (Manual) 0.3 Nucleated RBCs # 0 K/uL Sodium (136-146) mmol/L Potassium (3.5-5.1) mmol/L Chloride (98-110) mmol/L Carbon Dioxide (21-31) mmol/L BUN (6.0-23.0) mg/dL Creatinine (0.6-1.5) mg/dL Est Cr Clr Drug Dosing mL/min Estimated GFR (MDRD) ml/min Glucose (60-110) mg/dL POC Glucose 211 H 125 H (60-110) mg/dL Calcium (8.8-10.8) mg/dL Total Bilirubin (0.1-1.5) mg/dL AST (5-40) IU/L ALT (8-54) IU/L Alkaline Phosphatase (40-150) Total Protein (6.0-8.0) g/dL Albumin (3.5-5.0) g/dL Globulin (2.0-3.5) g/dL Albumin/Globulin Ratio (1.3-2.8) Valproic Acid (50-125) Ug/mL 10/29/16 Range/Units 04:12 WBC (4.0-11.0) K/uL RBC (4.50-5.90) M/uL Hgb (13.0-17.0) g/dL Hct (38.0-50.0) % MCV (80.0-98.0) fL MCH (27.0-32.0) pg MCHC (31.0-37.0) g/dL RDW Std Deviation (28.0-62.0) fl RDW Coeff of Myles (11.0-15.0) % Plt Count (150-400) K/uL MPV (7.40-12.00) fL Add Manual Diff Neutrophils % (Manual) (48.0-80.0) % Lymphocytes % (Manual) (16.0-40.0) % Monocytes % (Manual) (0.0-15.0) % Eosinophils % (Manual) (0.0-7.0) % Nucleated RBC % /100WBC Absolute Seg Neuts Lymphocytes # (Manual) Monocytes # (Manual) Eosinophils # (Manual) Nucleated RBCs # K/uL Sodium 142 (136-146) mmol/L Potassium 4.7 (3.5-5.1) mmol/L Chloride 100 (98-110) mmol/L Carbon Dioxide 37 H (21-31) mmol/L BUN 10 (6.0-23.0) mg/dL Creatinine 0.7 (0.6-1.5) mg/dL Est Cr Clr Drug Dosing 120.51 mL/min Estimated GFR (MDRD) > 60.0 ml/min Glucose 102 (60-110) mg/dL POC Glucose (60-110) mg/dL Calcium 8.6 L (8.8-10.8) mg/dL Total Bilirubin 0.4 (0.1-1.5) mg/dL AST 12 (5-40) IU/L ALT 8 (8-54) IU/L Alkaline Phosphatase 72 (40-150) Total Protein 6.0 (6.0-8.0) g/dL Albumin 2.9 L (3.5-5.0) g/dL Globulin 3.1 (2.0-3.5) g/dL Albumin/Globulin Ratio 0.9 L (1.3-2.8) Valproic Acid (50-125) Ug/mL Result Diagrams: 10/29/16 04:12 10/29/16 04:12 Consult PN Assessment/Plan Procedures: Procedures AGENT NOS ASSAY W/OPTIC (10/28/14) AIRWAY INHALATION TREATMENT (09/14/16) ASSAY OF AMYLASE (12/01/15) ASSAY OF CK (CPK) (05/29/14) ASSAY OF DIGOXIN TOTAL (11/15/15) ASSAY OF LACTIC ACID (09/14/16) ASSAY OF MAGNESIUM (11/15/15) ASSAY OF NATRIURETIC PEPTIDE (10/24/15) ASSAY OF TROPONIN QUANT (04/30/16) C-REACTIVE PROTEIN (10/28/14) CHEST X-RAY 1 VIEW FRONTAL (11/15/15) CHEST X-RAY 2VW FRONTAL&LATL (09/14/16) CLOSTRIDIUM AG IA (11/15/15) COMPLETE CBC AUTOMATED (02/03/16) COMPLETE CBC W/AUTO DIFF WBC (09/14/16) COMPREHEN METABOLIC PANEL (09/14/16) CREATINE MB FRACTION (05/31/15) CT ABD & PELV W/CONTRAST (05/31/15) CULTURE AEROBIC IDENTIFY (10/28/14) DIAGNOSTIC COLONOSCOPY (09/09/15) DIAGNOSTIC LARYNGOSCOPY (08/23/15) EGD BIOPSY SINGLE/MULTIPLE (09/09/15) ELECTROCARDIOGRAM TRACING (09/14/16) EMERGENCY DEPT VISIT (09/14/16) EMERGENCY DEPT VISIT (11/15/15) EMERGENCY DEPT VISIT (07/31/15) EMERGENCY DEPT VISIT (05/31/15) EMERGENCY DEPT VISIT (11/22/14) EMERGENCY DEPT VISIT (11/02/14) EVALUATE PT USE OF INHALER (04/30/16) EVALUATION OF WHEEZING (05/28/16) GLUCOSE BLOOD TEST (04/30/16) GLYCOSYLATED HEMOGLOBIN TEST (10/17/15) HELICOBACTER PYLORI ANTIBODY (02/03/16) HYDRATE IV INFUSION ADD-ON (04/30/16) LACTOFERRIN FECAL (QUAL) (11/15/15) LIPID PANEL (10/17/15) METABOLIC PANEL TOTAL CA (11/15/15) MICROALBUMIN SEMIQUANT (05/26/13) MICROBE SUSCEPTIBLE HENOK (10/28/14) OFFICE/OUTPATIENT VISIT EST (10/17/14) OFFICE/OUTPATIENT VISIT EST (05/26/13) OFFICE/OUTPATIENT VISIT NEW (09/03/15) PROTHROMBIN TIME (11/15/15) ROUTINE VENIPUNCTURE (09/14/16) STOOL CULTR AEROBIC BACT EA (11/21/14) THER/PROPH/DIAG INJ IV PUSH (09/14/16) THER/PROPH/DIAG INJ SC/IM (11/15/15) THER/PROPH/DIAG IV INF INIT (11/15/15) TX/PRO/DX INJ NEW DRUG ADDON (05/31/15) TX/PRO/DX INJ SAME DRUG WEIGHT CLERK (10/24/15) URINALYSIS AUTO W/SCOPE (09/14/16) X-RAY EXAM OF FOOT (03/17/16) X-RAY EXAM OF FOOT (11/22/14) (1) Fall SNOMED Code(s): 0597188, [id number] Code(s): W19.XXXA - UNSPECIFIED FALL, INITIAL ENCOUNTER Current Visit: Yes Assessment:: This is a 56-year-old man with cognitive impairment, reported history of seizure disorder admitted after falls. Examination notable for bilateral upper limb tremor with component of asterixis. There is concern that he had a seizure that prompted fall, but I have little history to make that determination. Depakote level 51.7. It is noteworthy this was drawn while he was hospitalized. Compliance may be in question given that he became very somnolent when he was given his full regimen of home medication. I recommend minimizing WET CHEMISTRY ANALYST acting medications. I recommend discontinuing trazodone. For now, I recommend continuing Depakote 1000 mg. I will request records from his primary neurologist Michelle Mcrae. Regarding tremor and asterixis, I'm not aware if this is new or chronic. This can be associated with hypomagnesemia which he has but also can be a side effect of Depakote. I recommend replacing magnesium. I also recommend checking thyroid. I will order a TSH. I have requested records from his neurologist. I'm concerned about him being able to go home safely at this time. I would consider at least temporary placement and PT prior to returning to his mother's care. Problem List Initiated/Reviewed/Updated: Yes My Orders Last 24 Hours: My Active Orders 10/28/16 19:04 Obtain Past Medical Record [OM.PC] Routine Requesting Provider: Dr. Huffman
[2016-10-29] MEDS: Enoxaparin 40 MG/0.4 ML Syringe SUBCUT SCH (08:27)
[2016-10-29] MEDS: Oxybutynin 5 MG Tab PO SCH (08:27)
[2016-10-29] MEDS: PARoxetine 20 MG Tab PO SCH (08:28)
[2016-10-29] MEDS: Metoprolol Succinate 50 MG Tab.ER PO SCH (08:29)
[2016-10-29] MEDS: Magnesium Oxide 400 MG Tab PO SCH (08:29)
[2016-10-29] MEDS: Losartan 50 MG Tab PO SCH (08:30)
[2016-10-29] MEDS: Diltiazem 120 MG Cap.CD PO SCH (08:30)
[2016-10-29] MEDS: Diltiazem 180 MG Cap.CD PO SCH (08:31)
[2016-10-29] MEDS: Omeprazole 20 MG Cap.CR PO SCH (08:31)
[2016-10-29] MEDS: Bacitracin Oint 1 GM U/D Packet TOP SCH (08:31)
[2016-10-29] MEDS: metFORMIN 500 MG Tab PO SCH (08:31)
--- NOTE | 2016-10-29 17:41 | PCM.PN ---
- General Info Date of Service: 10/29/16 Admission Dx/Problem (Free Text): Admission Diagnosis/Problem Admission Diagnosis/Problem Syncope and collapse fall Subjective Update: The patient is somewhat agitated today. He has pulled out his IV access. Functional Status: Reports: Pain Controlled, Tolerating Diet - Review of Systems General: Reports: No Symptoms (Poor historian) HEENT: Reports: No Symptoms Pulmonary: Reports: No Symptoms Cardiovascular: Reports: No Symptoms Gastrointestinal: Reports: No Symptoms Genitourinary: Reports: No Symptoms Musculoskeletal: Reports: No Symptoms Skin: Reports: No Symptoms Neurological: Reports: No Symptoms Psychiatric: Reports: No Symptoms - Patient Data Vitals - Most Recent: Last Vital Signs Temp 36.4 C 10/29/16 12:00 Pulse 75 10/29/16 12:00 Resp 22 H 10/29/16 12:00 BP 124/68 10/29/16 12:00 Pulse Ox 92 L 10/29/16 12:00 Weight - Most Recent: 110.3 kg I&O - Last 24 Hours: Intake & Output 10/29/16 10/29/16 10/29/16 06:59 14:59 22:59 Intake Total 900 600 Output Total 1400 850 Balance -500 -250 Lab Results Last 24 Hours: Laboratory Results - last 24 hr 10/28/16 10/28/16 10/28/16 Range/Units 16:08 21:41 22:33 WBC (4.0-11.0) K/uL RBC (4.50-5.90) M/uL Hgb (13.0-17.0) g/dL Hct (38.0-50.0) % MCV (80.0-98.0) fL MCH (27.0-32.0) pg MCHC (31.0-37.0) g/dL RDW Std Deviation (28.0-62.0) fl RDW Coeff of Myles (11.0-15.0) % Plt Count (150-400) K/uL MPV (7.40-12.00) fL Add Manual Diff Neutrophils % (Manual) (48.0-80.0) % Lymphocytes % (Manual) (16.0-40.0) % Monocytes % (Manual) (0.0-15.0) % Eosinophils % (Manual) (0.0-7.0) % Nucleated RBC % /100WBC Absolute Seg Neuts Lymphocytes # (Manual) Monocytes # (Manual) Eosinophils # (Manual) Nucleated RBCs # K/uL Sodium (136-146) mmol/L Potassium (3.5-5.1) mmol/L Chloride (98-110) mmol/L Carbon Dioxide (21-31) mmol/L BUN (6.0-23.0) mg/dL Creatinine (0.6-1.5) mg/dL Est Cr Clr Drug Dosing mL/min Estimated GFR (MDRD) ml/min Glucose (60-110) mg/dL POC Glucose 110 211 H 125 H (60-110) mg/dL Calcium (8.8-10.8) mg/dL Total Bilirubin (0.1-1.5) mg/dL AST (5-40) IU/L ALT (8-54) IU/L Alkaline Phosphatase (40-150) Total Protein (6.0-8.0) g/dL Albumin (3.5-5.0) g/dL Globulin (2.0-3.5) g/dL Albumin/Globulin Ratio (1.3-2.8) 10/29/16 10/29/16 10/29/16 Range/Units 04:12 04:12 07:25 WBC 7.40 (4.0-11.0) K/uL RBC 4.24 L (4.50-5.90) M/uL Hgb 11.3 L (13.0-17.0) g/dL Hct 37.6 L (38.0-50.0) % MCV 88.7 (80.0-98.0) fL MCH 26.7 L (27.0-32.0) pg MCHC 30.1 L (31.0-37.0) g/dL RDW Std Deviation 45.0 (28.0-62.0) fl RDW Coeff of Myles 14 (11.0-15.0) % Plt Count 207 (150-400) K/uL MPV 9.20 (7.40-12.00) fL Add Manual Diff YES Neutrophils % (Manual) 44 L (48.0-80.0) % Lymphocytes % (Manual) 35 (16.0-40.0) % Monocytes % (Manual) 17 H (0.0-15.0) % Eosinophils % (Manual) 4 (0.0-7.0) % Nucleated RBC % 0.0 /100WBC Absolute Seg Neuts 3.3 Lymphocytes # (Manual) 2.6 Monocytes # (Manual) 1.3 Eosinophils # (Manual) 0.3 Nucleated RBCs # 0 K/uL Sodium 142 (136-146) mmol/L Potassium 4.7 (3.5-5.1) mmol/L Chloride 100 (98-110) mmol/L Carbon Dioxide 37 H (21-31) mmol/L BUN 10 (6.0-23.0) mg/dL Creatinine 0.7 (0.6-1.5) mg/dL Est Cr Clr Drug Dosing 120.51 mL/min Estimated GFR (MDRD) > 60.0 ml/min Glucose 102 (60-110) mg/dL POC Glucose 91 (60-110) mg/dL Calcium 8.6 L (8.8-10.8) mg/dL Total Bilirubin 0.4 (0.1-1.5) mg/dL AST 12 (5-40) IU/L ALT 8 (8-54) IU/L Alkaline Phosphatase 72 (40-150) Total Protein 6.0 (6.0-8.0) g/dL Albumin 2.9 L (3.5-5.0) g/dL Globulin 3.1 (2.0-3.5) g/dL Albumin/Globulin Ratio 0.9 L (1.3-2.8) 10/29/ Range/Units 11:17 WBC (4.0-11.0) K/uL RBC (4.50-5.90) M/uL Hgb (13.0-17.0) g/dL Hct (38.0-50.0) % MCV (80.0-98.0) fL MCH (27.0-32.0) pg MCHC (31.0-37.0) g/dL RDW Std Deviation (28.0-62.0) fl RDW Coeff of Myles (11.0-15.0) % Plt Count (150-400) K/uL MPV (7.40-12.00) fL Add Manual Diff Neutrophils % (Manual) (48.0-80.0) % Lymphocytes % (Manual) (16.0-40.0) % Monocytes % (Manual) (0.0-15.0) % Eosinophils % (Manual) (0.0-7.0) % Nucleated RBC % /100WBC Absolute Seg Neuts Lymphocytes # (Manual) Monocytes # (Manual) Eosinophils # (Manual) Nucleated RBCs # K/uL Sodium (136-146) mmol/L Potassium (3.5-5.1) mmol/L Chloride (98-110) mmol/L Carbon Dioxide (21-31) mmol/L BUN (6.0-23.0) mg/dL Creatinine (0.6-1.5) mg/dL Est Cr Clr Drug Dosing mL/min Estimated GFR (MDRD) ml/min Glucose (60-110) mg/dL POC Glucose 115 H (60-110) mg/dL Calcium (8.8-10.8) mg/dL Total Bilirubin (0.1-1.5) mg/dL AST (5-40) IU/L ALT (8-54) IU/L Alkaline Phosphatase (40-150) Total Protein (6.0-8.0) g/dL Albumin (3.5-5.0) g/dL Globulin (2.0-3.5) g/dL Albumin/Globulin Ratio (1.3-2.8) Med Orders - Current: Current Medications Acetaminophen (Tylenol) 650 mg PO Q4H PRN PRN Reason: Pain (Mild 1-3)/fever Last Admin: 10/26/16 15:48 Dose: 650 mg Albuterol/Ipratropium (Duoneb 3.0-0.5 Mg/3 Ml) 3 ml NEB Q4HRRT PRN PRN Reason: Wheezing Last Admin: 10/29/16 02:52 Dose: 3 ml Bacitracin (Bacitracin Oint 1 Gm) 1 dose TOP DAILY [facility] Last Admin: 10/29/16 08:31 Dose: 1 dose Diltiazem HCl (Cardizem Cd) 120 mg PO DAILY [facility] Last Admin: 10/29/16 08:30 Dose: 120 mg Diltiazem HCl (Cardizem Cd) 180 mg PO DAILY [facility] Last Admin: 10/29/16 08:31 Dose: 180 mg Divalproex Sodium (Depakote Er) 1,000 mg PO BEDTIME [facility] Last Admin: 10/28/16 21:30 Dose: 1,000 mg Docusate Sodium (Colace) 100 mg PO BID PRN PRN Reason: Constipation Enoxaparin Sodium (Lovenox) 40 mg SUBCUT DAILY [facility] Last Admin: 10/29/16 08:27 Dose: 40 mg Hydroxyzine Pamoate (Vistaril) 25 mg PO BEDTIME PRN PRN Reason: Sleep Sodium Chloride (Normal Saline) 500 mls @ 999 mls/hr IV .BOLUS [facility] Last Admin: 10/26/16 05:11 Dose: 999 mls/hr Sodium Chloride (Normal Saline) 1,000 mls @ 50 mls/hr IV ASDIRECTED [facility] Last Admin: 10/28/16 22:41 Dose: 50 mls/hr Losartan Potassium (Cozaar) 25 mg PO DAILY [facility] Last Admin: 10/29/16 08:30 Dose: 25 mg Magnesium Oxide (Magnesium Oxide) 400 mg PO DAILY [facility] Last Admin: 10/29/16 08:29 Dose: 400 mg Metformin HCl (Glucophage) 500 mg PO DAILY [facility] Last Admin: 10/29/16 08:31 Dose: 500 mg Metoprolol Succinate (Toprol Xl) 50 mg PO DAILY [facility] Last Admin: 10/29/16 08:29 Dose: 50 mg Omeprazole (Omeprazole) 20 mg PO DAILY [facility] Last Admin: 10/29/16 08:31 Dose: 20 mg Ondansetron HCl (Zofran Odt) 4 mg PO Q6H PRN PRN Reason: nausea, able to take PO Oxybutynin Chloride (Oxybutynin) 5 mg PO DAILY [facility] Last Admin: 10/29/16 08:27 Dose: 5 mg Oxycodone HCl (Oxycodone) 5 mg PO Q4H PRN PRN Reason: Pain (moderate 4-6) Last Admin: 10/29/16 00:27 Dose: 5 mg Paroxetine HCl (Paxil) 40 mg PO DAILY [facility] Last Admin: 10/29/16 08:28 Dose: 40 mg Trazodone HCl (Trazodone) 50 mg PO BEDTIME PRN PRN Reason: sleep Discontinued Medications Benztropine Mesylate (Cogentin) 1 mg PO DAILY [facility] Last Admin: 10/26/16 10:54 Dose: Not Given Benztropine Mesylate (Cogentin) 1 mg PO BID [facility] Last Admin: 09/12/17 10:06 Dose: 1 mg Magnesium Chloride (Mag-64) 400 mg PO DAILY [facility] Magnesium Chloride (Mag-64) 400 mg PO DAILY [facility] Magnesium Oxide (Magnesium Oxide) 400 mg PO DAILY [facility] Metoprolol Succinate (Toprol Xl) 50 mg PO DAILY [facility] Last Admin: 10/27/16 10:07 Dose: 50 mg Morphine Sulfate (Morphine) 2 mg IVPUSH Q2H PRN PRN Reason: Pain (severe 7-10) Stop: 10/27/16 08:51 Paroxetine HCl (Paxil) 20 mg PO DAILY [facility] Last Admin: 10/26/16 10:54 Dose: Not Given Quetiapine Fumarate (Seroquel) 300 mg PO DAILY [facility] Last Admin: 10/26/16 10:54 Dose: Not Given Quetiapine Fumarate (Seroquel) 150 mg PO BID@1800,2100 [facility] Last Admin: 10/26/16 21:09 Dose: 150 mg Trazodone HCl (Trazodone) 50 mg PO DAILY [facility] Last Admin: 10/27/16 10:41 Dose: Not Given - Exam Quality Assessment: Supplemental Oxygen General: Alert, Oriented, Cooperative HEENT: Pupils Equal, Pupils Reactive Neck: Supple, Trachea Midline Lungs: Clear to Auscultation, Normal Respiratory Effort Cardiovascular: Regular Rate, Regular Rhythm GI/Abdominal Exam: Normal Bowel Sounds, Soft, No Distention Back Exam: Decreased Range of Motion Extremities: No Pedal Edema Skin: Warm, Dry Neurological: Other (Not walking secondary to pain in right foot) Psy/Mental Status: Alert, Agitated - Problem List & Annotations (1) Seizure SNOMED Code(s): 75347154 Code(s): R56.9 - UNSPECIFIED CONVULSIONS Status: Acute Priority: High Current Visit: Yes Annotation/Comment:: Noted to have minor trauma (2) Altered mental status SNOMED Code(s): 726555481 Code(s): R41.82 - ALTERED MENTAL STATUS, UNSPECIFIED Status: Resolved Priority: High Current Visit: Yes Qualifiers: Altered mental status type: transient alteration of awareness Qualified Code(s): R40.4 - Transient alteration of awareness Annotation/Comment:: More awake and alert today, CT scan shows no acute abnormalities (3) Abrasion of right knee SNOMED Code(s): 910372447 Code(s): S80.211A - ABRASION, RIGHT KNEE, INITIAL ENCOUNTER Status: Acute Priority: High Current Visit: Yes Qualifiers: Encounter type: initial encounter Qualified Code(s): S80.211A - Abrasion, right knee, initial encounter (4) Diabetes mellitus type 2 in obese SNOMED Code(s): 97321973 Code(s): E11.9 - TYPE 2 DIABETES MELLITUS WITHOUT COMPLICATIONS; E66.9 - OBESITY, UNSPECIFIED Status: Chronic Priority: High Current Visit: Yes (5) HTN (hypertension) SNOMED Code(s): 83951533 Code(s): I10 - ESSENTIAL (PRIMARY) HYPERTENSION Status: Chronic Priority : High Current Visit: Yes Qualifiers: Hypertension type: essential hypertension Qualified Code(s): I10 - Essential (primary) hypertension - Problem List Review Problem List Initiated/Reviewed/Updated: Yes - My Orders Last 24 Hours: My Active Orders 10/29/16 01:33 RT Aerosol Therapy [RC] ASDIRECTED Albuterol/Ipratropium [DuoNeb 3.0-0.5 MG/3 ML] 3 ml NEB Q4HRRT PRN 10/29/16 14:14 Communication Order [RC] DAILY [employer] Discontinue [Cardiac Monitoring Discontinue] [RC] Click to Edit Consult to Physical Therapy [PT Evaluation and Treatment] [CONS] Routine - Plan Plan:: The patient is a 56-year-old gentleman who is mentally delayed and is on multiple medications for seizures and bipolar disorder. He was originally admitted secondary to syncope and collapse and I believe this is secondary to seizures. Also the patient had a episode of somnolence as well as lethargy and his Seroquel was discontinued. This allowed the patient to improve. The patient says he is still having pain in his right foot although this is been x-rayed and showed have no acute damage. The patient has had a history of multiple falls and he has been evaluated by neurology today. The patient's mother has been helping him when she can. I feel like when the patient is ultimately stabilized and he is had better control of his seizure disorder and diabetes should be appropriate to return home. A primary concern for me at this time is the mother might having some difficulties with management of his medication and his complicated comorbidities. His mother is elderly and frail. She is unable to pick him up if he falls. I suspect that the patient may be appropriate for group home sooner than later. This is something that should be evaluated once his comorbidities of been otherwise stabilized. I've also recommended that the patient upon discharge follow-up quickly with his neurologist reportedly in [place]. The patient will have laboratory studies completed and his overall treatment plan will be adjusted. The patient be kept on sliding scale insulin as well as Accu-Cheks. He also be maintained on oxygen as necessary. It is also been reported that the patient had removed his telemetry as well as his IV access. The patient is started to become somewhat uncooperative and I suspect this is somewhat likely secondary to his cognitive issues.
[2016-10-29] MEDS: Divalproex Sodium 500 MG Tab.ER PO SCH (21:00)
[2016-10-30 05:56] LABS: CHLORIDE,CL 100 mmol/L (98-110); SODIUM,NA 141 mmol/L (136-146)
[2016-10-30] MEDS: Omeprazole 20 MG Cap.CR PO SCH (09:36)
[2016-10-30] MEDS: Metoprolol Succinate 50 MG Tab.ER PO SCH (09:36)
[2016-10-30] MEDS: Magnesium Oxide 400 MG Tab PO SCH (09:37)
[2016-10-30] MEDS: Oxybutynin 5 MG Tab PO SCH (09:37)
[2016-10-30] MEDS: Diltiazem 180 MG Cap.CD PO SCH (09:37)
[2016-10-30] MEDS: PARoxetine 20 MG Tab PO SCH (09:37)
[2016-10-30] MEDS: Diltiazem 120 MG Cap.CD PO SCH (09:37)
[2016-10-30] MEDS: metFORMIN 500 MG Tab PO SCH (09:38)
[2016-10-30] MEDS: Losartan 50 MG Tab PO SCH (09:38)
[2016-10-30] MEDS: Enoxaparin 40 MG/0.4 ML Syringe SUBCUT SCH (09:41)
[2016-10-30] MEDS: Bacitracin Oint 1 GM U/D Packet TOP SCH (09:46)
[2016-10-30] MEDS: Acetaminophen 325 MG Tab PO PRN (11:06)
--- NOTE | 2016-10-30 16:16 | PCM.PN ---
- General Info Date of Service: 10/30/16 - Review of Systems Systems Review Comment:: continued right foot pain. he is ambulating with a walker now. - Patient Data Vitals - Most Recent: Last Vital Signs Temp 96.7 F 10/30/16 11:19 Pulse 70 10/30/16 11:19 Resp 22 H 10/30/16 11:19 BP 133/79 10/30/16 11:19 Pulse Ox 96 10/30/16 11:19 Weight - Most Recent: 110.3 kg I&O - Last 24 Hours: Intake & Output 10/30/16 10/30/16 10/30/16 06:59 14:59 22:59 Intake Total 1370 Output Total 1400 Balance -30 Lab Results Last 24 Hours: Laboratory Results - last 24 hr 10/29/16 10/29/16 10/30/16 Range/Units 16:35 22:15 04:50 WBC (4.0-11.0) K/uL RBC (4.50-5.90) M/uL Hgb (13.0-17.0) g/dL Hct (38.0-50.0) % MCV (80.0-98.0) fL MCH (27.0-32.0) pg MCHC (31.0-37.0) g/dL RDW Std Deviation (28.0-62.0) fl RDW Coeff of Myles (11.0-15.0) % Plt Count (150-400) K/uL MPV (7.40-12.00) fL Add Manual Diff Neutrophils % (Manual) (48.0-80.0) % Lymphocytes % (Manual) (16.0-40.0) % Monocytes % (Manual) (0.0-15.0) % Eosinophils % (Manual) (0.0-7.0) % Nucleated RBC % /100WBC Absolute Seg Neuts Lymphocytes # (Manual) Monocytes # (Manual) Eosinophils # (Manual) Nucleated RBCs # K/uL Sodium 141 (136-146) mmol/L Potassium 5.0 (3.5-5.1) mmol/L Chloride 100 (98-110) mmol/L Carbon Dioxide 37 H (21-31) mmol/L BUN 9 (6.0-23.0) mg/dL Creatinine 0.6 (0.6-1.5) mg/dL Est Cr Clr Drug Dosing 140.60 mL/min Estimated GFR (MDRD) > 60.0 ml/min Glucose 105 (60-110) mg/dL POC Glucose 112 H 94 (60-110) mg/dL Calcium 9.1 (8.8-10.8) mg/dL Total Bilirubin 0.4 (0.1-1.5) mg/dL AST 13 (5-40) IU/L ALT 8 (8-54) IU/L Alkaline Phosphatase 78 (40-150) Total Protein 6.5 (6.0-8.0) g/dL Albumin 3.2 L (3.5-5.0) g/dL Globulin 3.3 (2.0-3.5) g/dL Albumin/Globulin Ratio 1.0 L (1.3-2.8) TSH 3rd Generation 1.97 (0.47-5.0) uIU/mL Valproic Acid 62.7 (50-125) Ug/mL 10/30/16 10/30/16 10/30/16 Range/Units 04:50 06:25 11:13 WBC 7.00 (4.0-11.0) K/uL RBC 4.52 (4.50-5.90) M/uL Hgb 12.0 L (13.0-17.0) g/dL Hct 39.5 (38.0-50.0) % MCV 87.4 (80.0-98.0) fL MCH 26.5 L (27.0-32.0) pg MCHC 30.4 L (31.0-37.0) g/dL RDW Std Deviation 44.8 (28.0-62.0) fl RDW Coeff of Myles 14 (11.0-15.0) % Plt Count 220 (150-400) K/uL MPV 9.10 (7.40-12.00) fL Add Manual Diff YES Neutrophils % (Manual) 47 L (48.0-80.0) % Lymphocytes % (Manual) 36 (16.0-40.0) % Monocytes % (Manual) 13 (0.0-15.0) % Eosinophils % (Manual) 4 (0.0-7.0) % Nucleated RBC % 0.0 /100WBC Absolute Seg Neuts 3.3 Lymphocytes # (Manual) 2.5 Monocytes # (Manual) 0.9 Eosinophils # (Manual) 0.3 Nucleated RBCs # 0 K/uL Sodium (136-146) mmol/L Potassium (3.5-5.1) mmol/L Chloride (98-110) mmol/L Carbon Dioxide (21-31) mmol/L BUN (6.0-23.0) mg/dL Creatinine (0.6-1.5) mg/dL Est Cr Clr Drug Dosing mL/min Estimated GFR (MDRD) ml/min Glucose (60-110) mg/dL POC Glucose 103 115 H (60-110) mg/dL Calcium (8.8-10.8) mg/dL Total Bilirubin (0.1-1.5) mg/dL AST (5-40) IU/L ALT (8-54) IU/L Alkaline Phosphatase (40-150) Total Protein (6.0-8.0) g/dL Albumin (3.5-5.0) g/dL Globulin (2.0-3.5) g/dL Albumin/Globulin Ratio (1.3-2.8) TSH 3rd Generation (0.47-5.0) uIU/mL Valproic Acid (50-125) Ug/mL Med Orders - Current: Current Medications Acetaminophen (Tylenol) 650 mg PO Q4H PRN PRN Reason: Pain (Mild 1-3)/fever Last Admin: 10/30/16 11:06 Dose: 650 mg Albuterol/Ipratropium (Duoneb 3.0-0.5 Mg/3 Ml) 3 ml NEB Q4HRRT PRN PRN Reason: Wheezing Last Admin: 10/29/16 02:52 Dose: 3 ml Bacitracin (Bacitracin Oint 1 Gm) 1 dose TOP DAILY [facility] Last Admin: 10/30/16 09:46 Dose: 1 dose Diltiazem HCl (Cardizem Cd) 120 mg PO DAILY [facility] Last Admin: 10/30/16 09:37 Dose: 120 mg Diltiazem HCl (Cardizem Cd) 180 mg PO DAILY [facility] Last Admin: 10/30/16 09:37 Dose: 180 mg Divalproex Sodium (Depakote Er) 1,000 mg PO BEDTIME [facility] Last Admin: 10/29/16 21:00 Dose: 1,000 mg Docusate Sodium (Colace) 100 mg PO BID PRN PRN Reason: Constipation Hydroxyzine Pamoate (Vistaril) 25 mg PO BEDTIME PRN PRN Reason: Sleep Losartan Potassium (Cozaar) 25 mg PO DAILY [facility] Last Admin: 10/30/16 09:38 Dose: 25 mg Magnesium Oxide (Magnesium Oxide) 400 mg PO DAILY [facility] Last Admin: 10/30/16 09:37 Dose: 400 mg Metformin HCl (Glucophage) 500 mg PO DAILY [facility] Last Admin: 10/30/16 09:38 Dose: 500 mg Metoprolol Succinate (Toprol Xl) 50 mg PO DAILY [facility] Last Admin: 10/30/16 09:36 Dose: 50 mg Omeprazole (Omeprazole) 20 mg PO DAILY [facility] Last Admin: 10/30/16 09:36 Dose: 20 mg Ondansetron HCl (Zofran Odt) 4 mg PO Q6H PRN PRN Reason: nausea, able to take PO Oxybutynin Chloride (Oxybutynin) 5 mg PO DAILY [facility] Last Admin: 10/30/16 09:37 Dose: 5 mg Oxycodone HCl (Oxycodone) 5 mg PO Q4H PRN PRN Reason: Pain (moderate 4-6) Last Admin: 10/29/16 00:27 Dose: 5 mg Paroxetine HCl (Paxil) 40 mg PO DAILY [facility] Last Admin: 10/30/16 09:37 Dose: 40 mg Trazodone HCl (Trazodone) 50 mg PO BEDTIME PRN PRN Reason: sleep Discontinued Medications Benztropine Mesylate (Cogentin) 1 mg PO DAILY [facility] Last Admin: 10/26/16 10:54 Dose: Not Given Benztropine Mesylate (Cogentin) 1 mg PO BID [facility] Last Admin: 10/27/16 10:06 Dose: 1 mg Enoxaparin Sodium (Lovenox) 40 mg SUBCUT DAILY [facility] Last Admin: 10/30/16 09:41 Dose: 40 mg Sodium Chloride (Normal Saline) 500 mls @ 999 mls/hr IV .BOLUS [facility] Last Admin: 10/26/16 05:11 Dose: 999 mls/hr Sodium Chloride (Normal Saline) 1,000 mls @ 50 mls/hr IV ASDIRECTED [facility] Last Admin: 10/28/16 22:41 Dose: 50 mls/hr Magnesium Chloride (Mag-64) 400 mg PO DAILY [facility] Magnesium Chloride (Mag-64) 400 mg PO DAILY [facility] Magnesium Oxide (Magnesium Oxide) 400 mg PO DAILY [facility] Metoprolol Succinate (Toprol Xl) 50 mg PO DAILY [facility] Last Admin: 10/27/16 10:07 Dose: 50 mg Morphine Sulfate (Morphine) 2 mg IVPUSH Q2H PRN PRN Reason: Pain (severe 7-10) Stop: 10/27/16 08:51 Paroxetine HCl (Paxil) 20 mg PO DAILY [facility] Last Admin: 10/26/16 10:54 Dose: Not Given Quetiapine Fumarate (Seroquel) 300 mg PO DAILY [facility] Last Admin: 10/26/16 10:54 Dose: Not Given Quetiapine Fumarate (Seroquel) 150 mg PO BID@1800,2100 [facility] Last Admin: 10/26/16 21:09 Dose: 150 mg Trazodone HCl (Trazodone) 50 mg PO DAILY [facility] Last Admin: 10/27/16 10:41 Dose: Not Given - Exam General: Alert, Cooperative (right foot with diffuse bruising extending to the plantar aspect of the foot.) - Problem List & Annotations (1) Fall SNOMED Code(s): 0773178, 704707842 Code(s): W19.XXXA - UNSPECIFIED FALL, INITIAL ENCOUNTER Status: Acute Current Visit: Yes (2) Diabetes mellitus type 2 in obese SNOMED Code(s): 30886556 Code(s): E11.9 - TYPE 2 DIABETES MELLITUS WITHOUT COMPLICATIONS; E66.9 - OBESITY, UNSPECIFIED Status: Chronic Priority: High Current Visit: Yes (3) Right foot sprain SNOMED Code(s): 25191101 Code(s): S93.601A - UNSPECIFIED SPRAIN OF RIGHT FOOT, INITIAL ENCOUNTER Status: Acute Current Visit: Yes - Problem List Review Problem List Initiated/Reviewed/Updated: Yes - Plan Plan:: The patient is a 56-year-old gentleman who is mentally delayed and is on multiple medications for seizures and bipolar disorder. He was originally admitted secondary to syncope and collapse and I believe this is secondary to seizures. Also the patient had a episode of somnolence as well as lethargy and his Seroquel was discontinued. This allowed the patient to improve. The patient says he is still having pain in his right foot although this is been x-rayed and showed have no acute damage. The patient has had a history of multiple falls and he has been evaluated by neurology today. The patient's mother has been helping him when she can. I feel like when the patient is ultimately stabilized and he is had better control of his seizure disorder and diabetes should be appropriate to return home. A primary concern for me at this time is the mother might having some difficulties with management of his medication and his complicated comorbidities. His mother is elderly and frail. She is unable to pick him up if he falls. I suspect that the patient may be appropriate for prison sooner than later. This is something that should be evaluated once his comorbidities of been otherwise stabilized. I've also recommended that the patient upon discharge follow-up quickly with his neurologist reportedly in [place]. The patient will have laboratory studies completed and his overall treatment plan will be adjusted. The patient be kept on sliding scale insulin as well as Accu-Cheks. He also be maintained on oxygen as necessary. It is also been reported that the patient had removed his telemetry as well as his IV access. The patient is started to become somewhat uncooperative and I suspect this is somewhat likely secondary to his cognitive issues. 10/30/2016 I was unsuccessful in contacting his mother at [phone]. No new lab in am anticipated discharge in am. Yaw Reid MD
--- NOTE | 2016-10-30 16:18 | PCM.SN ---
- Free Text/Narrative Note: will check CT right foot without contrast looking for occult fracture
--- NOTE | 2016-10-30 16:21 | PCM.SN ---
- Free Text/Narrative Note: I read DR Rosa's note. I will recheck Mg level in am. Yaw Reid MD
[2016-10-30] MEDS: Divalproex Sodium 500 MG Tab.ER PO SCH (21:10)
[2016-10-31] MEDS: Magnesium Oxide 400 MG Tab PO SCH (08:08)
[2016-10-31] MEDS: Oxybutynin 5 MG Tab PO SCH (08:08)
[2016-10-31] MEDS: metFORMIN 500 MG Tab PO SCH (08:08)
[2016-10-31] MEDS: Omeprazole 20 MG Cap.CR PO SCH (08:08)
[2016-10-31] MEDS: Bacitracin Oint 1 GM U/D Packet TOP SCH (08:08)
[2016-10-31] MEDS: PARoxetine 20 MG Tab PO SCH (08:08)
[2016-10-31] MEDS: Diltiazem 180 MG Cap.CD PO SCH (08:09)
[2016-10-31] MEDS: Losartan 50 MG Tab PO SCH (08:09)
[2016-10-31] MEDS: Metoprolol Succinate 50 MG Tab.ER PO SCH (08:10)
[2016-10-31] MEDS: Diltiazem 120 MG Cap.CD PO SCH (08:10)
[2016-10-31 12:07] VITALS: BP 123/76
--- NOTE | 2016-10-31 13:37 | PCM.DCSUM1 ---
Discharge Summary - Hospital Course Brief History: He was admitted with a fall and right foot pain and bruising. - Discharge Data Discharge Date: 10/31/16 Discharge Disposition: Home, Self-Care 01 Condition: Fair - Discharge Diagnosis/Problem(s) (1) Fall SNOMED Code(s): 5712948, 442796374 ICD Code: W19.XXXA - UNSPECIFIED FALL, INITIAL ENCOUNTER Status: Acute Current Visit: Yes (2) Diabetes mellitus type 2 in obese SNOMED Code(s): 75384533 ICD Code: E11.9 - TYPE 2 DIABETES MELLITUS WITHOUT COMPLICATIONS; E66.9 - OBESITY, UNSPECIFIED Status: Chronic Priority: High Current Visit: Yes (3) Right foot sprain SNOMED Code(s): 31601507 ICD Code: S93.601A - UNSPECIFIED SPRAIN OF RIGHT FOOT, INITIAL ENCOUNTER Status: Acute Current Visit: Yes - Patient Summary/Data Consults: Consultations 10/29/16 14:14 Consult to Physical Therapy [PT Evaluation and Treatment] [CONS] Routine Hospital Course: He was given nursing care. His plain films did not show any acute fracture. Because of continued clinical suspicion of fracture, CT of the right foot was obtained. There were multiple foot fractures as per xray reports. he is given a walking boot and instructions to have minimal weight bearing with a walker. His home medicines were adjusted in an effort to avoid over sedation. He is planning to follow up with Dr Rosas and with Dr Bianca Shah this next week. His mother is going to bring all of his medications with her to his next appointment to review with Dr Rosas. He seems to have tolerated being off of trazadone, lasix, KCL and seroquel during this hospitalization. oxycodone was given for pain. Lasix, KCL, trazadone and seroquel and cogentin are discontinued at discharge. Yaw Reid MD - Discharge Plan Prescriptions/Med Rec: Magnesium Oxide 400 mg PO DAILY #30 tablet oxyCODONE 5 mg PO Q4H PRN #30 tablet PRN Reason: Pain Home Medications: Home Meds Diltiazem HCl [Diltiazem 24Hr Cd] 300 mg PO DAILY 05/29/14 [History] Metoprolol Succinate [Toprol XL] 50 mg PO DAILY 05/29/14 [History] Montelukast Sodium [Singulair] 10 mg PO DAILY 05/29/14 [History] Omeprazole 20 mg PO DAILY 05/29/14 [History] Oxybutynin 5 mg PO DAILY 05/29/14 [History] PARoxetine [Paxil] 40 mg PO DAILY 05/29/14 [History] Divalproex Sodium [Divalproex Sodium ER] 1,000 mg PO BEDTIME 09/04/15 [History] Losartan Potassium 25 mg PO DAILY 09/04/15 [History] Digoxin [Digox] 250 mcg PO DAILY 11/16/15 [History] Albuterol [Proventil HFA] 1 - 2 inh IH Q4H PRN 10/26/16 [History] Albuterol/Ipratropium [DuoNeb 3.0-0.5 MG/3 ML] 3 ml IH QID PRN 10/26/16 [History ] Cholestyramine (With Sugar) [Cholestyramine Powder] 9 gm PO BID 10/26/16 [ History] atorvaSTATin [Lipitor] 10 mg PO DAILY 10/26/16 [History] hydrOXYzine Pamoate [Hydroxyzine Pamoate] 25 mg PO BEDTIME PRN 10/26/16 [History ] metFORMIN HCl [Metformin HCl] 500 tab PO DAILY 10/26/16 [History] Magnesium Oxide 400 mg PO DAILY #30 tablet 10/31/16 [Rx] oxyCODONE 5 mg PO Q4H PRN #30 tablet 10/31/16 [Rx] Referrals: [facility] [Outside] Bianca Shah MD [Physician] - () Pernell Rosas MD [Physician] - 11/09/16 3:45 pm - Patient Data Vitals - Most Recent: Last Vital Signs Temp 98.3 F 10/31/16 12:00 Pulse 77 10/31/16 12:00 Resp 18 10/31/16 12:00 BP 123/76 10/31/16 12:00 Pulse Ox 93 L 10/31/16 12:00 Weight - Most Recent: 110.3 kg I&O - Last 24 hours: Intake & Output 10/30/16 10/31/16 10/31/16 22:59 06:59 14:59 Intake Total 450 320 Output Total 1150 1050 Balance -700 -730 Lab Results - Last 24 hrs: Laboratory Results - last 24 hr 10/30/16 10/30/16 10/31/16 Range/Units 16:34 21:56 05:25 POC Glucose 115 H 120 H (60-110) mg/dL Magnesium 1.5 (1.5-2.3) mEq/L 10/31/16 10/31/16 Range/Units 06:15 11:14 POC Glucose 79 138 H (60-110) mg/dL Magnesium (1.5-2.3) mEq/L Med Orders - Current: Current Medications Acetaminophen (Tylenol) 650 mg PO Q4H PRN PRN Reason: Pain (Mild 1-3)/fever Last Admin: 10/30/16 11:06 Dose: 650 mg Albuterol/Ipratropium (Duoneb 3.0-0.5 Mg/3 Ml) 3 ml NEB Q4HRRT PRN PRN Reason: Wheezing Last Admin: 10/29/16 02:52 Dose: 3 ml Bacitracin (Bacitracin Oint 1 Gm) 1 dose TOP DAILY [facility] Last Admin: 10/31/16 08:08 Dose: 1 dose Diltiazem HCl (Cardizem Cd) 120 mg PO DAILY [facility] Last Admin: 10/31/16 08:10 Dose: 120 mg Diltiazem HCl (Cardizem Cd) 180 mg PO DAILY [facility] Last Admin: 10/31/16 08:09 Dose: 180 mg Divalproex Sodium (Depakote Er) 1,000 mg PO BEDTIME [facility] Last Admin: 10/30/16 21:10 Dose: 1,000 mg Docusate Sodium (Colace) 100 mg PO BID PRN PRN Reason: Constipation Hydroxyzine Pamoate (Vistaril) 25 mg PO BEDTIME PRN PRN Reason: Sleep Losartan Potassium (Cozaar) 25 mg PO DAILY [facility] Last Admin: 10/31/16 08:09 Dose: 25 mg Magnesium Oxide (Magnesium Oxide) 400 mg PO DAILY [facility] Last Admin: 10/31/16 08:08 Dose: 400 mg Metformin HCl (Glucophage) 500 mg PO DAILY [facility] Last Admin: 10/31/16 08:08 Dose: 500 mg Metoprolol Succinate (Toprol Xl) 50 mg PO DAILY [facility] Last Admin: 10/31/16 08:10 Dose: 50 mg Omeprazole (Omeprazole) 20 mg PO DAILY [facility] Last Admin: 10/31/16 08:08 Dose: 20 mg Ondansetron HCl (Zofran Odt) 4 mg PO Q6H PRN PRN Reason: nausea, able to take PO Oxybutynin Chloride (Oxybutynin) 5 mg PO DAILY [facility] Last Admin: 10/31/16 08:08 Dose: 5 mg Oxycodone HCl (Oxycodone) 5 mg PO Q4H PRN PRN Reason: Pain (moderate 4-6) Last Admin: 10/29/16 00:27 Dose: 5 mg Paroxetine HCl (Paxil) 40 mg PO DAILY [facility] Last Admin: 10/31/16 08:08 Dose: 40 mg Trazodone HCl (Trazodone) 50 mg PO BEDTIME PRN PRN Reason: sleep Discontinued Medications Benztropine Mesylate (Cogentin) 1 mg PO DAILY [facility] Last Admin: 10/26/16 10:54 Dose: Not Given Benztropine Mesylate (Cogentin) 1 mg PO BID [facility] Last Admin: 10/27/16 10:06 Dose: 1 mg Enoxaparin Sodium (Lovenox) 40 mg SUBCUT DAILY [facility] Last Admin: 10/30/16 09:41 Dose: 40 mg Sodium Chloride (Normal Saline) 500 mls @ 999 mls/hr IV .BOLUS [facility] Last Admin: 10/26/16 05:11 Dose: 999 mls/hr Sodium Chloride (Normal Saline) 1,000 mls @ 50 mls/hr IV ASDIRECTED [facility] Last Admin: 10/28/16 22:41 Dose: 50 mls/hr Magnesium Chloride (Mag-64) 400 mg PO DAILY [facility] Magnesium Chloride (Mag-64) 400 mg PO DAILY [facility] Magnesium Oxide (Magnesium Oxide) 400 mg PO DAILY [facility] Metoprolol Succinate (Toprol Xl) 50 mg PO DAILY [facility] Last Admin: 10/27/16 10:07 Dose: 50 mg Morphine Sulfate (Morphine) 2 mg IVPUSH Q2H PRN PRN Reason: Pain (severe 7-10) Stop: 10/27/16 08:51 Paroxetine HCl (Paxil) 20 mg PO DAILY [facility] Last Admin: 10/26/16 10:54 Dose: Not Given Quetiapine Fumarate (Seroquel) 300 mg PO DAILY [facility] Last Admin: 10/26/16 10:54 Dose: Not Given Quetiapine Fumarate (Seroquel) 150 mg PO BID@1800,2100 [facility] Last Admin: 10/26/16 21:09 Dose: 150 mg Trazodone HCl (Trazodone) 50 mg PO DAILY [facility] Last Admin: 10/27/16 10:41 Dose: Not Given *Q Meaningful Use (DIS) - VTE *Q VTE Criteria *Q: VTE Mechanical Contraindications *Q: At Risk for Falls - Stroke *Q Stroke Criteria *Q: - AMI *Q AMI Criteria *Q:
--- NOTE | 2016-10-31 14:31 | PCM.SN ---
- Free Text/Narrative Note: Home health care consult ordered; he cannot leave the home except with great difficulty. He has a high fall risk.
--- NOTE | 2016-11-02 10:01 | CT ---
EXAM DATE: 10/28/16 PATIENT'S AGE: 56 Patient: ABIGAIL TOLENTINO Facility: [place], [place] Site . Site : 1960 Study: CT Extremity Right [id number] foot-10/30/2016 7:15:07 PM Ordering Physician: Armida Benavides Final Report: Indication: Medial pain. Assess fracture. Comparison: 26 October 2016. Technique: Multi detector noncontrast images centered on the right and foot with axial, coronal and sagittal 2D reformats. Findings: Mild remote appearing likely traumatic spurring and ossicles at the anterior distal syndesmosis. No significant arthrosis at the tibiotalar ankle joint. Small spur along the superficial margin medial deltoid ligament origin. Type 2 accessory navicular. Mild enthesopathic spurring calcaneal insertion and plantar fascia origin at the posterior calcaneus. No significant finding through the midfoot joints. Comminuted fractures through the plantar margin 1st metatarsal base with no step-off. Dominant fracture lucency less than 2 mm diastatic. Bony debris along the plantar margin of the interface between 1st and 2nd tarsometatarsal joints. No definitive widening of the Lisfranc joint. Disruption of ligament is suspected. Small slightly plantar displaced fracture fragment from the 2nd metatarsal medial margin. Similar although even more subtle appearance at the 3rd metatarsal base. 4th and 5th metatarsal bases appear intact. Dominant fracture fragment within the 1st metatarsal extends distally into the diaphysis about 2.3 cm without significant displacement or distraction. Forefoot appears normal. Tiny os peroneum noted. Impression: 1. Lisfranc type fracture of the medial midfoot without evident displacement. 2. Minimal likely posttraumatic arthrosis anterior distal syndesmosis and sequela of prior ligamentous injury at the medial tibiotalar joint. 3. Enthesopathic spurring of the calcaneus. Please note that all CT scans at this facility use dose modulation, iterative reconstruction, and/or weight-based dosing when appropriate to reduce radiation dose to as low as reasonably achievable. Dictated by Chris Harmon MD @ Nov 02 2016 8:26AM (Electronic Signature) Report Signed by Proxy. JUAN
== END 2016-10-31 15:00 | disposition home or self-care (01) | DRG 563 ==
LOC: MW.ED 04:59 → MW.MS 06:29 → OBSVTOIN 10-28 07:22
PROVIDERS: ADMIT Internal Medicine; ATTEND Internal Medicine
DX: R42 Dizziness and giddiness (principal); S92.811A Other fracture of right foot, initial encounter for closed fracture; R55 Syncope and collapse; S80.212A Abrasion, left knee, initial encounter; S80.211A Abrasion, right knee, initial encounter; W18.30XA Fall on same level, unspecified, initial encounter; Y93.89 Activity, other specified; Y92.019 Unspecified place in single-family (private) house as the place of occurrence of the external cause; E11.9 Type 2 diabetes mellitus without complications; F41.9 Anxiety disorder, unspecified; E66.9 Obesity, unspecified; J44.9 Chronic obstructive pulmonary disease, unspecified; E78.00 Pure hypercholesterolemia, unspecified; F41.8 Other specified anxiety disorders; G40.909 Epilepsy, unspecified, not intractable, without status epilepticus; I10 Essential (primary) hypertension; Z79.899 Other long term (current) drug therapy; Z68.33 Body mass index [BMI] 33.0-33.9, adult; Z91.81 History of falling
CPT/HCPCS: 36415 ×2; 70450 ×2; 71010; 73562; 73620; 80053 ×3; 80162; 82962 ×10; 83735 ×2; 84100; 84146; 84484; 85025 ×3; 85610; 93005; 96360; 96361 ×3; 96372 ×2; 99285; A9270 ×30; G0378 ×2; J1650 ×2; J7040 ×4; 73700-26-RT; 73700-RT; 80164; 84443; 97161-GP; 97530-GP; 99284

== ENCOUNTER 2017-05-20 10:04 | Emergency (ER) | payer MEDICARE, MEDICAID ==
[2017-05-20] MEDS ORDERED: Ibuprofen 600 MG Tab PO ONE (10:27)
--- NOTE | 2017-05-20 10:30 | EDM.PDOC ---
ED HPI GENERAL MEDICAL PROBLEM - General Chief Complaint: Upper Extremity Injury/Pain Stated Complaint: L HAND INJURY Time Seen by Provider: 05/20/17 10:22 Source of Information: Reports: Patient History Limitations: Reports: No Limitations - History of Present Illness INITIAL COMMENTS - FREE TEXT/NARRATIVE: History of present illness: []Patient fell down on the ice yesterday hitting his right palm and bilateral elbows. He had no loss of consciousness denies any headache, neck pain or any other pain. She has a superficial laceration on his right elbow. Review of systems: As per history of present illness and below otherwise all systems reviewed and negative. Past medical history: As per history of present illness and as reviewed below otherwise noncontributory. Surgical history: As per history of present illness and as reviewed below otherwise noncontributory. Social history: No reported history of drug or alcohol abuse. Family history: As per history of present illness and as reviewed below otherwise noncontributory. Physical exam: General: Well developed, well nourished in NAD HEENT: Atraumatic, normocephalic, pupils reactive, negative for conjunctival pallor or scleral icterus, mucous membranes moist, throat clear, neck supple, nontender, trachea midline. Lungs: Clear to auscultation, breath sounds equal bilaterally, chest nontender. Heart: S1S2, regular, negative for clicks, rubs, or JVD. Abdomen: Soft, nondistended, nontender. Negative for masses or hepatosplenomegaly. Negative for costovertebral tenderness. Pelvis: Stable nontender. Genitourinary: Deferred. Rectal: Deferred. Extremities: Atraumatic, negative for cords or calf pain. Neurovascular unremarkable. Neuro: Awake, alert, oriented. Cranial nerves II through XII unremarkable. Cerebellum unremarkable. Motor and sensory unremarkable throughout. Exam nonfocal. Diagnostics: []X-ray right elbow negative, right palm negative Therapeutics: []Motrin for pain tetanus status updated Impression: []Follow-up, Laceration greater than 8 hours old on the left elbow 4 cm superficial without signs of infection, contusion of right hand and left elbow Plan: []Motrin for pain keep elbow laceration clean follow-up with primary care return if symptoms worsen or change Definitive disposition and diagnosis as appropriate pending reevaluation and review of above. Right Hand Pain Score (Numeric/FACES): 10 Left Elbow Pain Score (Numeric/FACES): 10 - Related Data Allergies Allergy/AdvReac Type Severity Reaction Status Date / Time meat Allergy Shortness Uncoded 05/20/17 10:15 of Breath Home Meds: Home Meds Diltiazem HCl [Diltiazem 24Hr Cd] 300 mg PO DAILY 05/29/14 [History] Metoprolol Succinate [Toprol XL] 50 mg PO DAILY 05/29/14 [History] Montelukast Sodium [Singulair] 10 mg PO DAILY 05/29/14 [History] Omeprazole 20 mg PO DAILY 05/29/14 [History] Oxybutynin 5 mg PO DAILY 05/29/14 [History] PARoxetine [Paxil] 40 mg PO DAILY 05/29/14 [History] Divalproex Sodium [Divalproex Sodium ER] 1,000 mg PO BEDTIME 09/04/15 [History] Losartan Potassium 25 mg PO DAILY 09/04/15 [History] Digoxin [Digox] 250 mcg PO DAILY 11/16/15 [History] Albuterol [Proventil HFA] 1 - 2 inh IH Q4H PRN 10/26/16 [History] Albuterol/Ipratropium [DuoNeb 3.0-0.5 MG/3 ML] 3 ml IH QID PRN 10/26/16 [History ] Cholestyramine (With Sugar) [Cholestyramine Powder] 9 gm PO BID 10/26/16 [ History] atorvaSTATin [Lipitor] 10 mg PO DAILY 10/26/16 [History] hydrOXYzine Pamoate [Hydroxyzine Pamoate] 25 mg PO BEDTIME PRN 10/26/16 [History ] metFORMIN HCl [Metformin HCl] 500 tab PO DAILY 10/26/16 [History] Magnesium Oxide 400 mg PO DAILY #30 tablet 10/31/16 [Rx] traMADol [Ultram] 50 mg PO ASDIRECTED 05/20/17 [History] Past Medical History HEENT History: Reports: None Cardiovascular History: Reports: High Cholesterol, Hypertension Respiratory History: Reports: Asthma Other Respiratory History: Chronic cough, 02 as needed (mother states he seldom uses 02 at present as cough and SOB is better). 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 Psychiatric History: Reports: Anxiety, Developmental Delay Other Psychiatric History: high functioning Endocrine/Metabolic History: Reports: Diabetes, Type II Hematologic History: Reports: None Immunologic History: Reports: None Oncologic (Cancer) History: Reports: None Dermatologic History: Reports: None - Infectious Disease History Infectious Disease History: Reports: Chicken Pox - Past Surgical History HEENT Surgical History: Reports: Adenoidectomy, Tonsillectomy Respiratory Surgical History: Reports: None Male Surgical History: Reports: Other (See Below) Other Musculoskeletal Surgeries/Procedures:: Right Elbow surgery with metal and screws, c/o left shoulder pain and rt elbow pain Social & Family History - Family History Family Medical History: Noncontributory Cardiac: Reports: [place] Endocrine/Metabolic: Reports: Diabetes, type II - Tobacco Use Smoking Status *Q: Never Smoker Years of Tobacco use: 25 Packs/Tins Daily: 1 Second Hand Smoke Exposure: Yes - Caffeine Use Caffeine Use: Reports: Soda - Alcohol Use Days Per Week of Alcohol Use: 0 - Recreational Drug Use Recreational Drug Use: No Drug Use in Last 12 Months: No - Living Situation & Occupation Living situation: Reports: Single, with Family Occupation: Disabled Review of Systems - Review of Systems Review Of Systems: See Below (See history of present illness) ED EXAM, GENERAL - Physical Exam Exam: See Below (See history of present illness) Course - Vital Signs Last Recorded V/S: Last Vital Signs Temp 97.7 F 05/20/17 11:40 Pulse 86 05/20/17 11:40 Resp 17 05/20/17 11:40 BP 126/66 05/20/17 11:40 Pulse Ox 93 L 05/20/17 11:40 - Orders/Labs/Meds Meds: Medications Discontinued Medications Generic Name Dose Route Start Last Admin Trade Name Freq PRN Reason Stop Dose Admin Ibuprofen 600 mg 05/20/17 10:27 05/20/17 10:32 Motrin PO 05/20/17 10:28 600 mg ONETIME ONE Administration Departure - Departure Time of Disposition: 11:28 Disposition: Home, Self-Care 01 Condition: Good Clinical Impression: Laceration of right elbow Qualifiers: Encounter type: initial encounter Qualified Code(s): S51.011A - Laceration without foreign body of right elbow, initial encounter Contusion of right palm Qualifiers: Encounter type: initial encounter Qualified Code(s): S60.221A - Contusion of right hand, initial encounter - Discharge Information Instructions: Hand Contusion, Laceration Care, Adult, [id number] Referrals: Pernell Rosas MD [Primary Care Provider] - Forms: ED Department Discharge Additional Instructions: The following information is given to patients seen in the emergency department who are being discharged to home. This information is to outline your options for follow-up care. We provide all patients seen in our emergency department with a follow-up referral. The need for follow-up, as well as the timing and circumstances, are variable depending upon the specifics of your emergency department visit. If you don't have a primary care physician on staff, we will provide you with a referral. We always advise you to contact your personal physician following an emergency department visit to inform them of the circumstance of the visit and for follow-up with them and/or the need for any referrals to a consulting specialist. The emergency department will also refer you to a specialist when appropriate. This referral assures that you have the opportunity for follow-up care with a specialist. All of these measure are taken in an effort to provide you with optimal care, which includes your follow-up. Under all circumstances we always encourage you to contact your private physician who remains a resource for coordinating your care. When calling for follow-up care, please make the office aware that this follow-up is from your recent emergency room visit. If for any reason you are refused follow-up, please contact the [facility] Emergency Department at and asked to speak to the emergency department charge nurse. Ibuprofen, ice elevate keep wound cleaned. Return if any signs of infection occur [facility] [address] [place] [id number]
--- NOTE | 2017-05-20 11:14 | CR ---
EXAMINATION: Right hand HISTORY: Pain COMPARISON: None TECHNIQUE: 2 views FINDINGS: There is no acute osseous abnormality, dislocation, or fracture. Moderate generalized osteo penia. Radiocarpal alignment is preserved. Early osteoarthritic changes noted. IMPRESSION: 1. Moderate, age advanced, osteopenia. 2. No acute osseous abnormality.
[2017-05-20 11:47] VITALS: BP 126/66
== END 2017-05-20 11:40 | disposition home or self-care (01) ==
LOC: MW.ED 10:04
DX: S51.011A Laceration without foreign body of right elbow, initial encounter (principal); S60.221A Contusion of right hand, initial encounter; I10 Essential (primary) hypertension; E78.00 Pure hypercholesterolemia, unspecified; K21.9 Gastro-esophageal reflux disease without esophagitis; E11.9 Type 2 diabetes mellitus without complications; Z77.22 Contact with and (suspected) exposure to environmental tobacco smoke (acute) (chronic); Z91.018 Allergy to other foods; Z79.899 Other long term (current) drug therapy; Z79.84 Long term (current) use of oral hypoglycemic drugs; W00.9XXA Unspecified fall due to ice and snow, initial encounter
CPT/HCPCS: 73120-26-RT; 73120-RT; 99283; A9270-GY

== ENCOUNTER 2017-08-30 10:24 | Emergency (ER) | payer MEDICARE, MEDICAID ==
[2017-08-30 10:38] VITALS: BP 109/70
[2017-08-30] MEDS ORDERED: Ibuprofen 800 MG Tab PO ONE (10:58)
--- NOTE | 2017-08-30 11:03 | EDM.PDOC ---
ED HPI GENERAL MEDICAL PROBLEM - General Chief Complaint: Lower Extremity Injury/Pain Stated Complaint: LEFT ANKLE AND KNEE PAIN Time Seen by Provider: 08/30/17 10:30 Source of Information: Reports: Patient History Limitations: Reports: No Limitations - History of Present Illness INITIAL COMMENTS - FREE TEXT/NARRATIVE: History of present illness: []Patient's had 3-4 days of left anterior leg pain along his bone. He denies any trauma but says he may have walked into a table. Denies any fevers, calf pain, swelling or any other pain. He is currently taking tramadol and states it is not helping him. He has not tried any other medications or icing it. He states he has not been walking more than normal. Review of systems: As per history of present illness and below otherwise all systems reviewed and negative. Past medical history: As per history of present illness and as reviewed below otherwise noncontributory. Surgical history: As per history of present illness and as reviewed below otherwise noncontributory. Social history: No reported history of drug or alcohol abuse. Family history: As per history of present illness and as reviewed below otherwise noncontributory. Physical exam: General: Well developed, well nourished in NAD HEENT: Atraumatic, normocephalic, pupils reactive, negative for conjunctival pallor or scleral icterus, mucous membranes moist, throat clear, neck supple, nontender, trachea midline. Lungs: Clear to auscultation, breath sounds equal bilaterally, chest nontender. Heart: S1S2, regular, negative for clicks, rubs, or JVD. Abdomen: Soft, nondistended, nontender. Negative for masses or hepatosplenomegaly. Negative for costovertebral tenderness. Pelvis: Stable nontender. Genitourinary: Deferred. Rectal: Deferred. Extremities: Atraumatic, no signs of infection or external signs of trauma, no edema, negative for cords or calf pain. Neurovascular unremarkable. Neuro: Awake, alert, oriented. Cranial nerves II through XII unremarkable. Cerebellum unremarkable. Motor and sensory unremarkable throughout. Exam nonfocal. Diagnostics: [Patient declined x-rays Therapeutics: [] Impression: []Left anterior leg pain Plan: []Ibuprofen for pain, ice to leg, follow-up with your regular physician as needed. Definitive disposition and diagnosis as appropriate pending reevaluation and review of above. Left Leg Pain Score (Numeric/FACES): 9 - Related Data Allergies Allergy/AdvReac Type Severity Reaction Status Date / Time meat Allergy Shortness Uncoded 08/30/17 10:31 of Breath Home Meds: Home Meds Diltiazem HCl [Diltiazem 24Hr Cd] 300 mg PO DAILY 05/29/14 [History] Metoprolol Succinate [Toprol XL] 50 mg PO DAILY 05/29/14 [History] Montelukast Sodium [Singulair] 10 mg PO DAILY 05/29/14 [History] Omeprazole 20 mg PO DAILY 05/29/14 [History] Oxybutynin 5 mg PO DAILY 05/29/14 [History] PARoxetine [Paxil] 40 mg PO DAILY 05/29/14 [History] Divalproex Sodium [Divalproex Sodium ER] 1,000 mg PO BEDTIME 09/04/15 [History] Losartan Potassium 25 mg PO DAILY 09/04/15 [History] Digoxin [Digox] 250 mcg PO DAILY 11/16/15 [History] Albuterol [Proventil HFA] 1 - 2 inh IH Q4H PRN 10/26/16 [History] Albuterol/Ipratropium [DuoNeb 3.0-0.5 MG/3 ML] 3 ml IH QID PRN 10/26/16 [History ] Cholestyramine (With Sugar) [Cholestyramine Powder] 9 gm PO BID 10/26/16 [ History] atorvaSTATin [Lipitor] 10 mg PO DAILY 10/26/16 [History] hydrOXYzine Pamoate [Hydroxyzine Pamoate] 25 mg PO BEDTIME PRN 10/26/16 [History ] metFORMIN HCl [Metformin HCl] 500 tab PO DAILY 10/26/16 [History] Magnesium Oxide 400 mg PO DAILY #30 tablet 10/31/16 [Rx] traMADol [Ultram] 50 mg PO ASDIRECTED 05/20/17 [History] Past Medical History HEENT History: Reports: None Cardiovascular History: Reports: High Cholesterol, Hypertension Respiratory History: Reports: Asthma Other Respiratory History: Chronic cough, 02 as needed (mother states he seldom uses 02 at present as cough and SOB is better). 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 Psychiatric History: Reports: Anxiety, Developmental Delay Other Psychiatric History: high functioning Endocrine/Metabolic History: Reports: Diabetes, Type II Hematologic History: Reports: None Immunologic History: Reports: None Oncologic (Cancer) History: Reports: None Dermatologic History: Reports: None - Infectious Disease History Infectious Disease History: Reports: Chicken Pox - Past Surgical History HEENT Surgical History: Reports: Adenoidectomy, Tonsillectomy Respiratory Surgical History: Reports: None Male Surgical History: Reports: Other (See Below) Other Musculoskeletal Surgeries/Procedures:: Right Elbow surgery with metal and screws, c/o left shoulder pain and rt elbow pain Social & Family History - Family History Family Medical History: Noncontributory Cardiac: Reports: PR Endocrine/Metabolic: Reports: Diabetes, type II - Tobacco Use Smoking Status *Q: Never Smoker - Caffeine Use Caffeine Use: Reports: Soda - Recreational Drug Use Recreational Drug Use: No - Living Situation & Occupation Living situation: Reports: Single, with Family Occupation: Disabled Review of Systems - Review of Systems Review Of Systems: ROS reveals no pertinent complaints other than HPI. (See history of present illness) ED EXAM, GENERAL - Physical Exam Exam: See Below (See history of present illness) Course - Vital Signs Last Recorded V/S: Last Vital Signs Temp 96.5 F 08/30/17 10:28 Pulse 89 08/30/17 10:28 Resp 20 08/30/17 10:28 BP 109/70 08/30/17 10:28 Pulse Ox 97 08/30/17 10:28 - Orders/Labs/Meds Meds: Medications Discontinued Medications Generic Name Dose Route Start Last Admin Trade Name Freq PRN Reason Stop Dose Admin Ibuprofen 800 mg 08/30/17 10:58 Motrin PO 08/30/17 10:59 ONETIME ONE Departure - Departure Time of Disposition: 11:02 Disposition: Home, Self-Care 01 Condition: Good Clinical Impression: Pain of left anterior lower extremity - Discharge Information *PRESCRIPTION DRUG MONITORING PROGRAM REVIEWED*: Not Applicable *COPY OF PRESCRIPTION DRUG MONITORING REPORT IN PATIENT JUAREZ: Not Applicable Referrals: Pernell Rosas MD [Primary Care Provider] - Additional Instructions: The following information is given to patients seen in the emergency department who are being discharged to home. This information is to outline your options for follow-up care. We provide all patients seen in our emergency department with a follow-up referral. The need for follow-up, as well as the timing and circumstances, are variable depending upon the specifics of your emergency department visit. If you don't have a primary care physician on staff, we will provide you with a referral. We always advise you to contact your personal physician following an emergency department visit to inform them of the circumstance of the visit and for follow-up with them and/or the need for any referrals to a consulting specialist. The emergency department will also refer you to a specialist when appropriate. This referral assures that you have the opportunity for follow-up care with a specialist. All of these measure are taken in an effort to provide you with optimal care, which includes your follow-up. Under all circumstances we always encourage you to contact your private physician who remains a resource for coordinating your care. When calling for follow-up care, please make the office aware that this follow-up is from your recent emergency room visit. If for any reason you are refused follow-up, please contact the [facility] Emergency Department at and asked to speak to the emergency department charge nurse. Use Tylenol, ibuprofen, ice for pain relief follow-up with a primary care. [facility] [address] [place] [id number]
== END 2017-08-30 11:13 | disposition home or self-care (01) ==
LOC: MW.ED 10:24
DX: M79.605 Pain in left leg (principal); E78.00 Pure hypercholesterolemia, unspecified; I10 Essential (primary) hypertension; J45.909 Unspecified asthma, uncomplicated; E11.9 Type 2 diabetes mellitus without complications; Z91.018 Allergy to other foods; Z79.899 Other long term (current) drug therapy; Z79.84 Long term (current) use of oral hypoglycemic drugs
CPT/HCPCS: 99283; A9270

== ENCOUNTER 2022-03-15 10:41 | Emergency (ER) | payer MEDICARE, MEDICAID ==
[2022-03-15 11:23] LABS: CARBON DIOXIDE,CO2 43.4 mmol/L (21.0-32.0); POTASSIUM,K 4.7 mmol/L (3.5-5.1)
[2022-03-15 11:37] LABS: CORONAVIRUS COVID-19 NAA NEGATIVE (NEGATIVE); INFLUENZA A NAA NEGATIVE (NEGATIVE); INFLUENZA B NAA NEGATIVE (NEGATIVE)
[2022-03-15] MEDS ORDERED: Morphine 4 MG/ML Syringe IVPUSH STA (14:09)
[2022-03-15] MEDS ORDERED: Ketorolac 30 MG/ML SDV IVPUSH STA (15:24)
[2022-03-15 16:18] VITALS: BP 150/79; PULSE 73
== END 2022-03-15 16:30 | disposition home or self-care (01) ==
LOC: MW.ED 10:41
DX: R07.89 Other chest pain (principal); E11.9 Type 2 diabetes mellitus without complications; I10 Essential (primary) hypertension; K21.9 Gastro-esophageal reflux disease without esophagitis; J44.9 Chronic obstructive pulmonary disease, unspecified; J45.909 Unspecified asthma, uncomplicated; Z91.018 Allergy to other foods; Z91.09 Other allergy status, other than to drugs and biological substances; Z20.822 Contact with and (suspected) exposure to COVID-19; Z79.899 Other long term (current) drug therapy
CPT/HCPCS: 0240U; 36415; 71045; 80053; 80162; 80175; 81003; 83735; 83880; 84484; 85025; 85379; 93005; 93971; 96374; 96375; 99285; J1885; J2270; 93010; 99284

== ENCOUNTER 2022-09-19 04:21 | Emergency (ER) | payer MEDICARE, MEDICAID ==
[2022-09-19] MEDS ORDERED: Albuterol/Ipratropium 3.0-0.5 MG/3 ML Neb Soln NEB ONE (04:42)
[2022-09-19] MEDS ORDERED: methylPREDNISolone Sodium Succinate 125 MG/2 ML SDV IVPUSH ONE (04:42)
[2022-09-19 04:57] LABS: BASOPHILS PERCENT AUTO 0.2 % (0.0-1.5); EOSINOPHILS ABSOLUTE AUTO 0.2 K/uL (0.0-0.7); EOSINOPHILS PERCENT AUTO 2.8 % (0.0-7.0); HEMATOCRIT 41.2 % (38.0-50.0); HEMOGLOBIN 12.3 g/dL (13.0-17.0); LYMPHOCYTES ABSOLUTE AUTO 2.1 K/uL (0.6-2.4); LYMPHOCYTES PERCENT AUTO 34.7 % (16.0-40.0); MEAN CORPUSCULAR HEMOGLOBIN 27.7 pg (27.0-32.0); MEAN CORPUSCULAR HGB CONC 29.9 g/dL (31.0-37.0); MEAN CORPUSCULAR VOLUME 92.8 fL (80.0-98.0); MONOCYTES ABSOLUTE AUTO 0.6 K/uL (0.0-0.8); NEUTROPHILS ABSOLUTE AUTO 3.2 K/uL (1.4-5.7); NEUTROPHILS PERCENT AUTO 52.3 % (48.0-80.0); PLATELET COUNT,PLT 205 K/uL (150-400); RED BLOOD CELL COUNT 4.44 M/uL (4.50-5.90); WHITE BLOOD CELL COUNT,WBC 6.02 K/uL (4.0-11.0)
[2022-09-19 04:59] LABS: BASE EXCESS VENOUS 10.7 (-2.0-3.0); PH,VENOUS 7.48 (7.31-7.41)
[2022-09-19 05:31] LABS: A/G RATIO 0.7 (0.9-1.6); ALBUMIN 3.1 g/dL (3.4-5.0); BILIRUBIN TOTAL 0.2 mg/dL (0.2-1.0); CALCIUM 8.6 mg/dL (8.5-10.1); CARBON DIOXIDE,CO2 35.5 mmol/L (21.0-32.0); CREATININE 0.8 mg/dL (0.8-1.3); EST CRCL DRUG DOSING (CG) 91.44 mL/min; MAGNESIUM 1.9 mg/dL (1.8-2.4); POTASSIUM,K 4.2 mmol/L (3.5-5.1); PROTEIN TOTAL,TP 7.5 g/dL (6.4-8.2)
[2022-09-19 06:46] VITALS: BP 132/85; PULSE 78
== END 2022-09-19 06:45 | disposition home or self-care (01) ==
LOC: MW.ED 04:21
DX: J44.1 Chronic obstructive pulmonary disease with (acute) exacerbation (principal); E78.00 Pure hypercholesterolemia, unspecified; I10 Essential (primary) hypertension; E11.9 Type 2 diabetes mellitus without complications; K21.9 Gastro-esophageal reflux disease without esophagitis; Z91.018 Allergy to other foods; Z91.014 Allergy to mammalian meats; Z79.899 Other long term (current) drug therapy; Z20.822 Contact with and (suspected) exposure to COVID-19
CPT/HCPCS: 36415; 71045; 80053; 82803; 83735; 83880; 84484; 85025; 93005; 96374; 99285; J2930; U0002; 93010; 99284; J7620-GY

== ENCOUNTER 2022-11-17 04:02 | Emergency (ER) | payer MEDICARE, MEDICAID ==
[2022-11-17 10:54] VITALS: BP 140/92; PULSE 92
== END 2022-11-17 10:50 | disposition home or self-care (01) ==
LOC: MW.ED 04:02
DX: J96.11 Chronic respiratory failure with hypoxia (principal); E78.00 Pure hypercholesterolemia, unspecified; I10 Essential (primary) hypertension; J45.909 Unspecified asthma, uncomplicated; K21.9 Gastro-esophageal reflux disease without esophagitis; E11.9 Type 2 diabetes mellitus without complications; Z91.018 Allergy to other foods; Z79.899 Other long term (current) drug therapy
CPT/HCPCS: 93010; 99283; 99284